=== PATIENT | female | born 1995 | race Two or more races ===

== ENCOUNTER 2016-04-25 16:04 | Emergency (ER) | payer OTHER ==
--- NOTE | 2016-04-25 16:37 | ER Document Report ---
ED Medical Screen (RME) - General Chief Complaint: Headache Stated Complaint: BODY ACHES,HEADACHE,VOMITING Time seen by provider: 16:35 Mode of Arrival: Ambulatory Information source: Patient Notes: 20-year-old female presents to ED for headache and body aches, vomited times one just before coming to the emergency room. She is 23 weeks . Denies abdominal pain. States she has felt her baby kick in all day. Next OB appointment is on Sunday. I have greeted and performed a rapid initial assessment of this patient. A comprehensive ED assessment and evaluation of the patient, analysis of test results and completion of medical decision making process will be conducted by an additional ED providers. TRAVEL OUTSIDE OF THE [place] IN LAST 30 DAYS: No - Related Data Allergies/Adverse Reactions: mushroom Allergy (Verified 03/15/16 22:37) banana peppers Allergy (Uncoded 03/15/16 22:37) Physical Exam - Vital signs Vitals: Temp Pulse Resp BP Pulse Ox 98.5 F 98 16 133/73 H 97 04/25/16 16:17 04/25/16 16:17 04/25/16 16:17 04/25/16 16:17 04/25/16 16:17 Course - Vital Signs Vital signs: Temp Pulse Resp BP Pulse Ox 98.5 F 98 16 133/73 H 97 04/25/16 16:17 04/25/16 16:17 04/25/16 16:17 04/25/16 16:17 04/25/16 16:17
[2016-04-25 17:59] LABS: APPEARANCE,URINE CLEAR; BILIRUBIN,URINE NEGATIVE (NEGATIVE); GLUCOSE, URINE NEGATIVE (NEGATIVE); KETONES,URINE NEGATIVE (NEGATIVE); LEUKOCYTE ESTERASE,URINE SMALL (NEGATIVE); NITRITE,URINE NEGATIVE (NEGATIVE); PROTEIN,URINE NEGATIVE (NEGATIVE); URINE SPECIFIC GRAVITY 1.012; UROBILINOGEN,URINE NEGATIVE mg/dL (<2.0)
--- NOTE | 2016-04-25 18:44 | ER Document Report ---
ED General - General Chief Complaint: Headache Stated Complaint: BODY ACHES,HEADACHE,VOMITING Mode of Arrival: Ambulatory TRAVEL OUTSIDE OF THE [place] IN LAST 30 DAYS: No - HPI Patient complains to provider of: headache nausea vomiting body aches Notes: Patient is a a 1 coming in for blood states symptoms. States ongoing for the last 3-4 days. Patient states no fevers no chills no diarrhea. Patient states positive movement. Patient denies any dysuria. Patient [facility] follow[facility] for her [facility] care. States she is taking her vitamins. Patient states she is taking promethazine for nausea control. - Related Data Allergies/Adverse Reactions: mushroom Allergy (Verified 04/25/16 16:37) banana peppers Allergy (Uncoded 04/25/16 16:37) Past Medical History - General Information source: Patient - Social History Smoking Status: Never Smoker Chew tobacco use (# tins/day): No Frequency of alcohol use: None Drug Abuse: None Family History: Reviewed & Not Pertinent Patient has suicidal ideation: No Patient has homicidal ideation: No Renal/ Medical History: Denies: Hx Peritoneal Dialysis Past Surgical History: Reports: Hx Gynecologic Surgery - 2015 Review of Systems - Review of Systems Constitutional: Other - Headache myalgias nausea vomiting EENT: No symptoms reported Cardiovascular: No symptoms reported Respiratory: No symptoms reported Gastrointestinal: No symptoms reported Genitourinary: No symptoms reported Female Genitourinary: No symptoms reported Musculoskeletal: No symptoms reported Skin: No symptoms reported Hematologic/Lymphatic: No symptoms reported Neurological/Psychological: No symptoms reported Physical Exam - Vital signs Vitals: Temp Pulse Resp BP Pulse Ox 98.5 F 98 16 133/73 H 97 04/25/16 16:17 04/25/16 16:17 04/25/16 16:17 04/25/16 16:17 04/25/16 16:17 Interpretation: Normal - General General appearance: Appears well, Alert - HEENT Head: Normocephalic, Atraumatic Eyes: Normal Pupils: PERRL - Respiratory Respiratory status: No respiratory distress Chest status: Nontender Breath sounds: Normal Chest palpation: Normal - Cardiovascular Rhythm: Regular Heart sounds: Normal auscultation Murmur: No - Abdominal Inspection: Gravid female Distension: No distension Bowel sounds: Normal Tenderness: Nontender Organomegaly: No organomegaly - Back Back: Normal, Nontender - Extremities General upper extremity: Normal inspection, Nontender, Normal color, Normal ROM , Normal temperature General lower extremity: Normal inspection, Nontender, Normal color, Normal ROM , Normal temperature, Normal weight bearing. No: Isidra's sign - Neurological Neuro grossly intact: Yes Cognition: Normal Orientation: AAOx4 [place] Com[place] Scale Eye Opening: Spontaneous [place] Coma Scale Verbal: Oriented [place] Com[place] Scale Motor: Obeys Commands [place] Coma Scale Total: 15 Speech: Normal Motor strength normal: LUE, RUE, LLE, RLE Sensory: Normal - Psychological Associated symptoms: Normal affect, Normal mood - Skin Skin Temperature: Warm Skin Moisture: Dry Skin Color: Normal Course - Re-evaluation Re-evalutation: 04/25/16 23:36 Patient coming in for evaluation nausea vomiting myalgias headache. Bedside ultrasound showed heart rate at approximately 146. Patient's urinalysis showed no signs of ketosis dehydration or infection. Patient will be given Reglan for home patient was discharged to follow-up with [facility] [employer] - Vital Signs Vital signs: Temp Pulse Resp BP Pulse Ox 98.5 F 74 16 118/61 99 04/25/16 16:17 04/25/16 19:00 04/25/16 16:17 04/25/16 19:00 04/25/16 19:00 - Laboratory Laboratory results interpreted by me: 04/25/16 04/25/16 16:40 16:40 Ur Leukocyte Esterase SMALL H Urine HCG, Qual POSITIVE H Discharge - Discharge Clinical Impression: Myalgia Qualifiers: Weeks of gestation: 32 weeks Qualified Code(s): Z3A.32 - 32 weeks gestation of Headache Qualifiers: Headache type: unspecified Headache chronicity pattern: acute headache Intractability: not intractable Qualified Code(s): R51 - Headache Condition: Good Disposition: HOME, SELF-CARE Instructions: Headache ([facility]), Reglan ([facility]), ([facility]) Additional Instructions: Take medication as prescribed. Please follow-up with your [employer]ING [employer] doctor. For nausea and vomiting during I recomment: Start with 10-12.5 mg of pyridoxine (vitamin B6) three times a day for 2 days. If not fully effective, Increase to 12.5 mg of pyridoxine four times a day for 2 days. If not fully effective, Increase to 25 mg of pyridoxine three times a day for 2 days. If not fully effective, Continue 25 mg pyridoxine 3 times a day, and add 12.5 mg of doxylamine before bedtime each day for 2 days. If not fully effective, Continue 25 mg pyridoxine 3 times a day, and take 12.5 mg of doxylamine twice a day. If not fully effective, Continue 25 mg pyridoxine 3 times a day, and take 12.5 mg of doxylamine three times a day. If not fully effective, Continue 25 mg pyridoxine 3 times a day, and 12.5 mg of doxylamine 3 times a day , while adding Emetrol, one to two tablespoons (15-30 cc) taken once or twice a day as needed. (Emetrol is an [id number] mixture of sugar syrups and phosphoric acid [phosphorylated carbohydrate solution]) that acts by soothing the actual wall of the gastrointestinal tract). If not fully effective, Consult with your doctor. Prescriptions: Metoclopramide HCl [Reglan] 5 mg PO Q6 #20 tablet
[2016-04-25 19:01] VITALS: BP 118/61
== END 2016-04-25 19:00 | disposition home or self-care (01) ==
LOC: ER 16:04
DX: M79.1 Myalgia (principal); R51 Headache; R52 Pain, unspecified; R11.2 Nausea with vomiting, unspecified; Z3A.32 32 weeks gestation of pregnancy
CPT/HCPCS: 81001; 81025; 99284

== ENCOUNTER 2016-05-30 22:48 | Outpatient (CLI) | payer OTHER ==
[2016-05-30 23:31] LABS: APPEARANCE,URINE SLIGHTLY-CLOUDY; BILIRUBIN,URINE NEGATIVE (NEGATIVE); GLUCOSE, URINE NEGATIVE (NEGATIVE); KETONES,URINE NEGATIVE (NEGATIVE); LEUKOCYTE ESTERASE,URINE SMALL (NEGATIVE); NITRITE,URINE NEGATIVE (NEGATIVE); PROTEIN,URINE NEGATIVE (NEGATIVE); URINE SPECIFIC GRAVITY 1.016; UROBILINOGEN,URINE NEGATIVE mg/dL (<2.0)
[2016-05-30 23:47] LABS: URINE BARBITURATES SCREEN NEGATIVE; URINE METHADONE SCREEN NEGATIVE; URINE OPIATES LOW NEGATIVE; URINE PHENCYCLIDINE SCREEN NEGATIVE
--- NOTE | 2016-05-31 04:45 | L&D Flow Sheet ---
LD Flowsheet Datetime Report Generated by CPN: 05/31/2016 04:45 Datetime: 05/31/2016 00:18 Additional Nursing Comments: Pt ambulated off unit with FOB. Pt given kick count care notes. Pt advised to keep appts as scheduled and f/u in L_D or physician's office as needed. Pt verbalized understanding and denies any questions. (Celeste Willett, RN) Datetime: 05/31/2016 00:17 Comments: Monitors removed for discharge. (Celeste Lattibeaudeir, RN) Datetime: 05/31/2016 00:00 Monitor Mode: External; Palpation (Xiomara Barth, RN) Frequency (min): none (Luis Felipeandra Barth, RN) Resting Tone (Palpate): Relaxed (Rucsandra Tab, RN) Contraction Comments: pt denies cramping or ctx. Abdomen palpates soft. (Xiomara aBrth, RN) Monitor Mode: External US (Xiomara Barth, RN) FHR Baseline Rate : 130 (Rucsandra Tab, RN) Variability: Moderate 6-25 bpm (Rucsandra Tab, RN) Accelerations: 15X15 (Rucsandra Tab, RN) Decelerations: None (Rucsandra Tab, RN) Datetime: 05/30/2016 23:56 NBP Sys/Shelli/Mean (mmHg): 123 (QS system process) : 69 (QS system process) : 92 (QS system process) Pulse: 68 (QS system process) LaborFlag: Antepartum (QS system process) Datetime: 05/30/2016 23:42 Communication Comments: Dr Neri on unit, strip reviewed, urine results reviewed. Orders received to D/C home after 1 hour total monitoring completed. (Xiomara Barth RN) Datetime: 05/30/2016 23:30 Monitor Mode: External; Palpation (Xiomara Barth, CHUNG) Frequency (min): none (Xiomara Barth RN) Resting Tone (Palpate): Relaxed (Xiomara Barth RN) Contraction Comments: abdomen palpates soft, pt denies feeling cramping or ctx. (Xiomara Barth, CHUNG) Monitor Mode: External US (Xiomara Barth, CHUNG) FHR Baseline Rate : 135 (Xiomara Barth RN) Variability: Moderate 6-25 bpm (Xiomara Barth, RN) Accelerations: 10X10 (Xiomara Barth, RN) Decelerations: None (Xiomara Barth, RN) Datetime: 05/30/2016 23:28 Maternal Comments: pt reports movement. (Xiomara Barth, RN) Datetime: 05/30/2016 23:26 Communication Comments: Dr Neri on unit, advised of Gs_Ps, EDC, pt complains and medical history. MD reviews FHTs and TOCO tracing and VS. (Xiomara Barth, RN) Datetime: 05/30/2016 23:16 NBP Sys/Shelli/Mean (mmHg): 134 (QS system process) : 81 (QS system process) : 101 (QS system process) Pulse: 71 (QS system process) Temperature (F): 98.7 (Luis Felipeandra Tab, RN) Temperature (C): 37.1 (QS system process) Temperature Route: Oral (Xiomara Barth, RN) LaborFlag: Antepartum (QS system process) Datetime: 05/30/2016 23:15 Pain Scale: 0 (Xiomara Barth, RN) Pain Presence: None/Denies (Xiomara Barth, RN) Pain Type: N/A (Xiomara Barth, RN) Vaginal Bleeding: None (Luis Felipeandra Barth, RN) Level of Consciousness: Fully Conscious (Xiomara Barth, RN) DTR's/Clonus: DTRs 2+; No Clonus (Dionycsandra Barth, RN) Headache: Denies (Rucsandra Tab, RN) Breath Sounds, Left: Clear and Equal (Luis Felipeandra Barth, RN) Breath Sounds, Right: Clear and Equal (Rucsandra Barth, RN) Nausea/Vomiting: Denies (Dionycsandra Barth, RN) RUQ Epigastric Pain: Denies (Rucsandra Tab, RN) LaborFlag: Antepartum (QS system process) Datetime: 05/30/2016 23:14 Maternal Comments: external monitors applied (Xiomara Barth RN) Patient Position/Activity: Left Tilt (Xiomara Barth RN) Instructional Method: Verbal; Patient Instructed; Family/Support Person Instructed; Verbalized Understanding (Xiomara Barth RN) Plan of Care: Plan of Care Discussed (Xiomara Barth RN) Unit Routine: [place] to Room; Call Merchant; Bed; Phone/Cell Phone Use; Unit Personnel; Handwashing; Monitoring; Safety/Fall Risk Prevention; Bathroom Privileges (Xiomara Barth RN) Datetime: 05/30/2016 23:13 Stage of : Antepartum (Xiomara Barth RN)
--- NOTE | 2016-05-31 04:45 | L&D Discharge Summary ---
OB Discharge Summary Datetime Report Generated by CPN: 05/31/2016 04:45 DISCHARGE DIAGNOSIS Diagnosis/Symptoms: False Labor Gestation: 28.3 Number of Babies in Womb: 1 Parity: 0 DIET/ACTIVITY/RESTRICTIONS Diet: Regular Activity: Normal Activity TEACHING/INSTRUCTIONS/REFERRALS Instructions Given To: Patient Instructions Understood: Patient Verbalized Understanding Referrals: None Educational Materials- Other: Kick count care notes given DISCHARGE INFORMATION Discharged AMA: No Discharge Date/Time: 05/31/2016 00:18 Discharged To: Home Discharge Provider Name: Dr. Neri Accompanied By: FOB Discharge Method: Ambulatory Condition: Stable FOLLOW UP INFORMATION Follow Up With: [facility] Follow Up On: As Scheduled Follow Up Phone Number: [facility] -
--- NOTE | 2016-05-31 04:45 | L&D Admission Assessment ---
LD ADM ASMT Datetime Report Generated by CPN: 05/31/2016 04:45 PATIENT ASSESSMENT Assessment Type: Triage (05/30/2016 23:15:Rucsandra Tab, RN) WEIGHT Weight (lb): 145 (05/31/2016 00:07:QS system process) Weight (kg): 65.9 (05/31/2016 00:07:QS system process) PAIN Pain Scale: 0 (05/30/2016 23:15:Xiomara Barth RN) Pain Presence: None/Denies (05/30/2016 23:15:Xiomara Barth RN) Pain Type: N/A (05/30/2016 23:15:Xiomara Barth RN) CONTRACTIONS Frequency (min): none (05/31/2016 00:00:Xiomara Barth RN) Frequency (min): none (05/30/2016 23:30:Xiomara Barth RN) Resting Tone [place]: Relaxed (05/31/2016 00:00:Xiomara Barth RN) Resting Tone [place]: Relaxed (05/30/2016 23:30:Xiomara Barth RN) Contraction Comments: pt denies cramping or ctx. Abdomen palpates soft. (05/31/2016 00:00:Xiomara Barth RN) Contraction Comments: abdomen palpates soft, pt denies feeling cramping or ctx. (05/30/2016 23:30:Xiomara Barth RN) NEURO Level of Consciousness: Fully Conscious (05/30/2016 23:15:Xiomara Barth RN) DTR's/Clonus: DTRs 2+; No Clonus (05/30/2016 23:15:Xiomara Barth RN) Headache: Denies (05/30/2016 23:15:Xiomara Barth RN) Dizziness: No (05/30/2016 23:15:Xiomara Barth RN) Blurred Vision: No (05/30/2016 23:15:Xiomara Barth RN) Extremity Numbness/Tingling : None (05/30/2016 23:15:Xiomara Barth RN) Extremity Movement: Full Range of Motion (05/30/2016 23:15:Xiomara Barth RN) CARDIOVASCULAR Heart Rhythm: Regular (05/30/2016 23:15:Xiomara Barth RN) Nailbeds: [place] (05/30/2016 23:15:Xiomara Barth RN) Capillary Refill: Less than 3 Seconds (05/30/2016 23:15:Xiomara Barth RN) Lower Extremities Edema: None (05/30/2016 23:15:Xiomara Barth RN) Lower Extremities Edema Degree: None (05/30/2016 23:15:Xiomara Barth RN) Upper Extremities Edema: None (05/30/2016 23:15:Xiomara Barth RN) Upper Extremities Edema Degree: None (05/30/2016 23:15:Xiomara Barth RN) Facial Edema: None (05/30/2016 23:15:Xiomara Barth RN) DVT RISK ASSESSMENT DVT Risk Age: Age less than 41 years (05/30/2016 23:15:Xiomara Barth RN) DVT Risk BMI: BMI<31 (05/30/2016 23:15:Xiomara Barth RN) DVT Risk Surgery: None Applicable (05/30/2016 23:15:Xiomara Barth RN) DVT Risk Other: Women Only- or (<1 month) (05/30/2016 23:15:Xiomara Barth RN) DVT Risk Total: 1 (05/30/2016 23:15:QS system process) DVT Risk Text: Low Risk (<10%) No specific measures, early ambulation (05/30/2016 23:15:QS system process) RESPIRATORY Respiratory Effort: Unlabored; Regular Rhythm; Equal Expansion (05/30/2016 23:15:Xiomara Barth RN) Breath Sounds, Left: Clear and Equal (05/30/2016 23:15:Xiomara Barth RN) Breath Sounds, Right: Clear and Equal (05/30/2016 23:15:Xiomara Barth RN) Cough Productivity: None (05/30/2016 23:15:Xiomara Barth RN) GASTROINTESTINAL Nausea/Vomiting: Denies (05/30/2016 23:15:Xiomara Barth RN) Bowel Sounds: Normoactive (05/30/2016 23:15:Xiomara Barth RN) RUQ Epigastric Pain: Denies (05/30/2016 23:15:Xiomara Barth RN) Bowel Patterns: Soft, Formed Stool (05/30/2016 23:15:Xiomara Barth RN) Hemorrhoids: None (05/30/2016 23:15:Xiomara Barth RN) Diet Type: Regular diet (05/30/2016 23:15:Xiomara Barth RN) Last Meal: 05/30/2016 19:30 (05/30/2016 23:15:Xiomara Barth RN) GENITOURINARY Bladder: Nondistended (Annotations: voiding) (05/30/2016 23:15:Xiomara Barth RN) Frequency of Urination: No (05/30/2016 23:15:Xiomara Barth RN) Urination Burning: No (05/30/2016 23:15:Xiomara Barth RN) CVA Tenderness: No (05/30/2016 23:15:Xiomara Barth RN) Vaginal Bleeding: None (05/30/2016 23:15:Xiomara Barth RN) Vaginal Discharge Amount: Small (05/30/2016 23:15:Xiomara Barth RN) Vaginal Discharge Color: White (05/30/2016 23:15:Xiomara Barth RN) INTEGUMENTARY Skin Color: Pale (05/30/2016 23:15:Xiomara Barth RN) Skin Temperature: Warm (05/30/2016 23:15:Xiomara Barth RN) Skin Moisture: Dry (05/30/2016 23:15:Xiomara Barth RN) Surgical Scars: forehead- fell as child (05/30/2016 23:15:Xiomara Barth RN) Body Piercings/Tattoos: 3 tattoos. (05/30/2016 23:15:Xiomara Barth RN) MARSHALL SKIN ASSESSMENT Marshall Scale Sensory Perception: No Impairment- Responds to verbal commands. Has no sensory deficit which would limit ability to feel or voice pain or discomfort (05/30/2016 23:15:Xiomara Barth RN) Marshall Scale Moisture: Rarely Moist- Skin is usually dry. Linen only requires changing at routine intervals (05/30/2016 23:15:Xiomara Barth RN) Marshall Scale Activity: Walks Frequently- Walks outside the room at least twice a day and inside room at least every 2 hours during the day. (05/30/2016 23:15:Xiomara Barth RN) Marshall Scale Mobility: No Limitations- Makes major and frequent changes in position without assistance (05/30/2016 23:15:Xiomara Barth RN) Marshall Scale Nutrition: Excellent- Eats most of every meal. Never refuses a meal. Usually eats a total of 4 or more servings of meat and dairy products. Occasionally eats between meals. Does not require supplementation (05/30/2016 23:15:Xiomara Barth RN) Marshall Scale Friction and Shear: No Apparent Problem- Moves in bed and in chair independently and has sufficient muscle strength to lift up completely during move. Maintains good position in bed or chair at all times (05/30/2016 23:15:Xiomara Barth RN) Marshall Scale Total: 23 (05/30/2016 23:15:QS system process) Marshall Scale Risk: No Risk of Pressure Ulcer Noted at this Time (05/30/2016 23:15:QS system process) SUPPORT Family Support: Significant Other supportive, at bedside frequently (05/30/2016 23:15:Xiomara Barth RN) Emotional State: Calm/Relaxed (05/30/2016 23:15:Xiomara Barth RN) SAFETY Call Merchant Within Reach: Yes (05/30/2016 23:15:Xiomara Barth RN) Side Rails Up: Yes (05/30/2016 23:15:Xiomara Barth RN) Bed Wheels Locked: Yes (05/30/2016 23:15:Xiomara Barth RN) Arm Bands Present: Yes (05/30/2016 23:15:Xiomara Barth RN) Isolation: [place] (05/30/2016 23:15:Xiomara Barth RN) FALL SCREEN Fall Risk History of Falling: (0) No (05/30/2016 23:15:Xiomara Barth RN) Fall Risk Secondary Diagnosis: (0) No (05/30/2016 23:15:Xiomara Barth RN) Fall Risk Ambulatory Aid: (0) None/Bedrest/Wheelchair/Nurse Assist (05/30/2016 23:15:Xiomara Barth RN) Fall Risk IV Therapy: (0) No (05/30/2016 23:15:Xiomara Barth RN) Fall Risk Gait: (0) Normal/Bedrest/Immobile (05/30/2016 23:15:Xiomara Barth RN) Fall Risk Mental Status: (0) Oriented to Own Ability (05/30/2016 23:15:Xiomara Barth RN) Fall Risk Score: 0 (05/30/2016 23:15:QS system process) Fall Risk Score Definition: No Risk: No action required (05/30/2016 23:15:QS system process) RECENT TRAVEL/INFECTIOUS DISEASE Recent Exp Communicable Disease: No (05/30/2016 23:15:Xiomara Barth RN) Cough or Fever: No (05/30/2016 23:15:Xiomara Barth RN) Foreign Travel Past 10 Days: No (05/30/2016 23:15:Xiomara Barth RN) Open Wounds or Sores: No (05/30/2016 23:15:Xiomara Barth RN) Prior Antibiotic Resistance Tx: No (05/30/2016 23:15:Xiomara Barth RN) Cultures Obtained: Not Applicable (05/30/2016 23:15:Xiomara Barth RN) Isolation Initiated: No (05/30/2016 23:15:Xiomara Barth RN) Pt/Family Education: Handwashing Hygiene (05/30/2016 23:15:Xiomara Barth RN) BABY A FHR Baseline Rate (bpm) Baby A: 130 (05/31/2016 00:00:Xiomara Barth RN) FHR Baseline Rate (bpm) Baby A: 135 (05/30/2016 23:30:Xiomara Barth RN) Variability Baby A: Moderate 6-25 bpm (05/31/2016 00:00:Xiomara Barth RN) Variability Baby A: Moderate 6-25 bpm (05/30/2016 23:30:Xiomara Barth RN) Accelerations Baby A: 15X15 (05/31/2016 00:00:Xiomara Barth RN) Accelerations Baby A: 10X10 (05/30/2016 23:30:Xiomara Barth RN) Decelerations Baby A: None (05/31/2016 00:00:Xiomara Barth RN) Decelerations Baby A: None (05/30/2016 23:30:Xiomara Barth RN)
--- NOTE | 2016-05-31 04:45 | Antepartum Discharge Summary ---
Antepartum DC Datetime Report Generated by CPN: 05/31/2016 04:45 DIET/ACTIVITY/RESTRICTIONS Diet: Regular (05/31/2016 00:18:Celeste Lattibeaudeir, RN) Activity: Normal Activity (05/31/2016 00:18:Celeste Lattibeaudeir, RN) TEACHING/INSTRUCTIONS/REFERRALS Instructions Given To: Patient (05/31/2016 00:18:Celeste Lattibeaudeir, RN) Instructions Understood: Patient Verbalized Understanding (05/31/2016 00:18:Celeste Willett RN) Referrals: None (05/31/2016 00:18:Celeste Willett RN) Educational Materials- Other: Kick count care notes given (05/31/2016 00:18:Celeste Willett RN) DISCHARGE INFORMATION Discharged AMA: No (05/31/2016 00:18:Celeste Willett RN) Discharge Date/Time: 05/31/2016 00:18 (05/31/2016 00:18:Celeste Willett RN) Discharged To: Home (05/31/2016 00:18:Celeste Willett RN) Discharge Provider Name: Dr. Neri (05/31/2016 00:18:Celeste Willett RN) Accompanied By: EUGENIE (05/31/2016 00:18:Celeste Willett RN) Discharge Method: Ambulatory (05/31/2016 00:18:Celeste Willett RN) Condition: Stable (05/31/2016 00:18:Celeste Willett RN) FOLLOW UP INFORMATION Follow Up With: [facility] (05/31/2016 00:18:Celeste Willett RN) Follow Up On: As Scheduled (05/31/2016 00:18:Celeste Willett RN) Follow Up Phone Number: [facility] - (05/31/2016 00:18:Celeste Willett RN)
--- NOTE | 2016-05-31 04:45 | L&D Current Admission ---
Current Admit Datetime Report Generated by CPN: 05/31/2016 04:45 ADMISSION INFORMATION Chief Complaint: at 28.3 with complaints of mucous discharge, with pink and brown tinged discharge noted upon wiping earlier in the day. Pt denies CTX or LOF. Pt denies bleeding. +FM. (05/30/2016 23:15:Xiomara Barth RN)
--- NOTE | 2016-05-31 04:45 | L&D General Admission ---
General Admit Datetime Report Generated by CPN: 05/31/2016 04:45 INFORMATION Patient Age: 20 (05/29/2016 16:03:QS system process) EDC: 08/19/2016 00:00 (05/30/2016 22:50:Celeste Willett RN) : 2 (05/30/2016 22:50:Celeste Willett RN) Para: 0 (05/30/2016 22:50:Celeste Willett RN) Term: 0 (05/30/2016 22:50:Celeste Willett RN) : 0 (05/30/2016 22:50:Celeste Willett RN) Spontaneous Abortions: 0 (05/30/2016 22:50:Celeste Willett RN) Induced Abortions: 0 (05/30/2016 22:50:Celeste Willett RN) Livin (05/30/2016 22:50:Celeste Willett RN) Cesareans: 0 (05/30/2016 22:50:Celeste Willett RN) VBACs: 0 (05/30/2016 22:50:Celeste Willett RN) Ectopic: 0 (05/30/2016 22:50:Celeste Willett RN) Multiple Births: 0 (05/30/2016 22:50:Celeste Willett RN) Baby, Number in Womb: 1 (05/31/2016 00:18:Celeste Willett RN) Baby, Number in Womb: 1 (05/30/2016 22:50:Celeste Willett RN) CARE Primary Practicing Md Anesthesiologist: [facility] (05/30/2016 22:50:Celeste Willett RN) Month of 1st Visit: 16 weeks (05/30/2016 22:50:Xiomara Barth RN) Adequate Care: No (05/30/2016 22:50:Xiomara Barth RN) Height (in): 63 (05/31/2016 00:07:QS system process) ALLERGIES Medication Allergy: No (05/30/2016 22:50:Xiomara Barth RN) Medication Allergies: mushroom (04/25/2016) (05/29/2016 16:03:QS system process) Latex Allergy: Latex Allergies (05/30/2016 22:50:Xiomara Barth RN) COMMUNICATION Primary Language: Polish (05/30/2016 22:50:Celeste Willett RN) Medical Tx Preferred Language: Polish (05/30/2016 22:50:Celeste Willett RN) Communication Barrier(s): None (05/30/2016 22:50:Celeste Willett RN) DEMOGRAPHICS Address: [address] [place] [id number] (05/29/2016 16:03:QS system process) Zipcode: [address] (05/29/2016 16:03:QS system process) Home (05/29/2016 16:03:QS system process) N: [id number] (05/29/2016 16:03:QS system process) Next of Kin Name: MINH LOZANO (05/29/2016 16:03:QS system process) Next of Kin (05/29/2016 16:03:QS system process) Next of Kin Relationship: SPO (05/29/2016 16:03:QS system process) Date of : 1995 (05/29/2016 16:03:QS system process) Marital Status: (05/29/2016 16:03:QS system process) Sex: Female (05/29/2016 16:03:QS system process) Race: Other (05/29/2016 16:03:QS system process) Ethnicity: Non- or (05/29/2016 16:03:QS system process) Quaker: Yazidi (05/29/2016 16:03:QS system process) LABS Blood Type: O Positive (05/30/2016 22:50:Celeste Willett RN) Antibody Screen: Negative (05/30/2016 22:50:Celeste Willett RN) Rho(G) this : Not Applicable (05/30/2016 22:50:Celeste Willett RN) RPR/VDRL: Nonreactive (05/30/2016 22:50:Celeste Willett RN) HIV Results: Negative (05/30/2016 22:50:Celeste Willett RN) Hepatitis B: Negative (05/30/2016 22:50:Celeste Willett RN) Rubella: Immune (05/30/2016 22:50:Celeste Willett RN)
== END 2016-05-31 00:18 | disposition home or self-care (01) ==
LOC: LC 22:48
PROVIDERS: ATTEND Obstetrics & Gynecology
PROC: 4A1HXCZ Monitoring of Products of Conception, Cardiac Rate, External Approach (ICD-10-PCS; principal; 2016-05-30)
DX: O47.03 False labor before 37 completed weeks of gestation, third trimester (principal); Z3A.28 28 weeks gestation of pregnancy
CPT/HCPCS: 80307; 81001

== ENCOUNTER → 2016-06-21 | Outpatient (CLI) | payer OTHER ==
[2016-06-21 06:01] LABS: APPEARANCE,URINE CLEAR; BILIRUBIN,URINE NEGATIVE (NEGATIVE); GLUCOSE, URINE NEGATIVE (NEGATIVE); KETONES,URINE NEGATIVE (NEGATIVE); LEUKOCYTE ESTERASE,URINE TRACE (NEGATIVE); NITRITE,URINE NEGATIVE (NEGATIVE); PROTEIN,URINE NEGATIVE (NEGATIVE); URINE SPECIFIC GRAVITY 1.012; UROBILINOGEN,URINE NEGATIVE mg/dL (<2.0)
[2016-06-21 06:10] LABS: URINE BARBITURATES SCREEN NEGATIVE; URINE METHADONE SCREEN NEGATIVE; URINE OPIATES LOW NEGATIVE; URINE PHENCYCLIDINE SCREEN NEGATIVE
== END | disposition home or self-care (01) ==
LOC: LC 05:04
PROVIDERS: ATTEND Specialist
PROC: 4A1HXCZ Monitoring of Products of Conception, Cardiac Rate, External Approach (ICD-10-PCS; principal; 2016-06-21)
DX: O47.03 False labor before 37 completed weeks of gestation, third trimester (principal); Z3A.31 31 weeks gestation of pregnancy
CPT/HCPCS: 80307; 81001

== ENCOUNTER 2016-07-16 01:36 | Emergency (ER) | payer OTHER ==
[2016-07-16] MEDS ORDERED: NORMAL SALINE 1000 ML 1,000 ML IV ONE (02:40)
[2016-07-16] MEDS ORDERED: ONDANSETRON HCL INJ/PF 4 MG/2 ML SDV IV ONE (02:41)
--- NOTE | 2016-07-16 02:41 | ER Document Report ---
ED General - General Chief Complaint: Vomiting Stated Complaint: VOMITING, POSSIBLE ALLERGIC REACTION Notes: Patient is a 20-year-old female presents with complaint of sudden onset of vomiting, diarrhea, and abdominal cramping. She says all her symptoms started at once and that she had hives. She says symptoms have since resolved. She's had no further vomiting or diarrhea. She'll occasionally have some cramping. She is 35 weeks . No vaginal bleeding or discharge. No fevers. No infections. Hives have completely resolved. No other complaints at this time. TRAVEL OUTSIDE OF THE [place] IN LAST 30 DAYS: No - Related Data Allergies/Adverse Reactions: mushroom Allergy (Verified 06/11/16 23:31) banana peppers Allergy (Uncoded 04/25/16 16:37) Past Medical History - Social History Smoking Status: Never Smoker Frequency of alcohol use: None Drug Abuse: None Family History: Reviewed & Not Pertinent Patient has suicidal ideation: No Patient has homicidal ideation: No Renal/ Medical History: Denies: Hx Peritoneal Dialysis Past Surgical History: Reports: Hx Gynecologic Surgery - 2015 Review of Systems - Review of Systems Notes: My Normal Review Basic REVIEW OF SYSTEMS: CONSTITUTIONAL : Denies fever, chills, or sweats. Denies recent illness. EENT: Denies eye, ear, throat, or mouth pain or symptoms. Denies nasal or sinus congestion.. RESPIRATORY: Denies cough, cold, or chest congestion. Denies shortness of breath, difficulty breathing, or wheezing. GASTROINTESTINAL: Abdominal cramping. Vomiting and diarrhea. GENITOURINARY: Denies difficulty urinating, painful urination, burning, frequency, or blood in urine. FEMALE GENITOURINARY: Denies vaginal bleeding, abnormal or irregular periods. LMP: Currently . MUSCULOSKELETAL: Denies neck or back pain or joint pain or swelling. SKIN: Denies rash or skin lesions. NEUROLOGICAL: Denies altered mental status or loss of consciousness. Denies headache. Denies weakness or paralysis or loss of use of either side. Denies problems with gait or speech. Denies sensory or motor loss. ALL OTHER SYSTEMS REVIEWED AND NEGATIVE. Physical Exam - Vital signs Vitals: Temp Pulse Resp BP Pulse Ox 97.4 F 84 16 130/91 H 98 07/16/16 01:40 07/16/16 01:40 07/16/16 01:40 07/16/16 01:40 07/16/16 01:40 - Notes Notes: General Appearance: Well nourished, alert, cooperative, no acute distress, no obvious discomfort. Well-appearing. Vitals: reviewed, See vital signs table. Head: no swelling or tenderness to the head Eyes: PERRL, EOMI, Conjuctiva clear Mouth: No decreasd moisture Lungs: No wheezing, No rales, No rhonci, No accessory muscle use, good air exchange bilaterally. Heart: Normal rate, Regular rythm, No murmur, no rub Abdomen: Normal BS, soft, No rigidity, No abdominal tenderness, abdomen abdomen No guarding, no rebound, no abdominal masses, no organomegaly Extremities: strength 5/5 in all extremities, good pulses in all extremities, no swelling or tenderness in the extremities, no edema. Skin: warm, dry, appropriate color, no rash Neuro: speech clear, oriented x 3, normal affect, responds appropriately to questions. Course - Vital Signs Vital signs: Temp Pulse Resp BP Pulse Ox 98.7 F 68 16 110/52 L 100 07/16/16 04:49 07/16/16 04:49 07/16/16 04:49 07/16/16 04:49 07/16/16 04:49 - Laboratory Result Diagrams: 07/16/16 03:07 07/16/16 03:07 Laboratory results interpreted by me: 07/16/16 07/16/16 07/16/16 03:07 03:07 03:07 WBC 12.8 H RBC 3.57 L Hgb 10.0 L Hct 30.0 L RDW 14.6 H Absolute Neutrophils 9.4 H Alkaline Phosphatase 205 H Urine Protein 30 H Urine Blood LARGE H Ur Leukocyte Esterase MODERATE H - Transfer of Care Notes: 07/16/16 05:47 Exact cause of the patient's sudden onset of vomiting and diarrhea is unclear. She's not having vomiting and diarrhea since that one episode. Extremities that she's had recurrent suprapubic cramping since then. She is 35 weeks . We will send her up to labor and delivery after discharge so that they can do monitoring of her to make sure she is not going into labor. Urinalysis does show evidence of infection. I informed patient that this could be contaminant; however, being that she is we should go ahead and treat upfront and then send her urine for culture. Encourage her to return to ER immediately if she has fevers, vaginal bleeding, worsening pain, or feels unwell. Patient agrees with plan will be discharged home. Dictation of this chart was performed using voice recognition software; therefore, there may be some unintended grammatical errors. Discharge - Discharge Clinical Impression: , Abdominal pain, Diarrhea, Pyuria Condition: Good Disposition: HOME, SELF-CARE Additional Instructions: Please return to the ER immediately if you have worsening pain, fevers, recurrent vomiting, vaginal bleeding, or if you feel unwell. We will send you directly to Labor and delivery from here so they can check to make sure the cramping you are having does not have any association with labor. Prescriptions: Cephalexin Monohydrate [Keflex 500 mg Capsule] 500 mg PO QID #20 capsule Referrals: BEN MCDONALD MD [Primary Care Provider] - Follow up in 3-5 days
[2016-07-16 03:14] LABS: ABSOLUTE BASOPHILS # (AUTO) 0.1 10^3/uL (0.0-0.2); ABSOLUTE EOSINOPHILS # (AUTO) 0.2 10^3/uL (0.0-0.6); ABSOLUTE LYMPHOCYTES (AUTO) 1.9 10^3/uL (0.5-4.7); ABSOLUTE MONOCYTES (AUTO) 1.2 10^3/uL (0.1-1.4); ABSOLUTE NEUT (AUTO) 9.4 10^3/uL (1.7-8.2); BASOPHILS % (AUTO) 0.5 % (0-2); EOSINOPHILS % (AUTO) 1.4 % (0-6); LYMPHOCYTES % (AUTO) 15.1 % (13-45); MEAN CORPUSCULAR HEMOGLOBIN 28.1 pg (27.0-33.4); MEAN CORPUSCULAR HGB CONC 33.5 g/dL (32.0-36.0); MEAN CORPUSCULAR VOLUME 84 fl (80-97); MONOCYTES % (AUTO) 9.4 % (3-13); RED BLOOD COUNT 3.57 10^6/uL (3.72-5.28); RED CELL DISTRIBUTION WIDTH 14.6 % (11.5-14.0); SEGMENTED NEUTROPHILS % (AUTO) 73.6 % (42-78); WHITE BLOOD COUNT 12.8 10^3/uL (4.0-10.5)
[2016-07-16 03:22] LABS: APPEARANCE,URINE SLIGHTLY-CLOUDY; BILIRUBIN,URINE NEGATIVE (NEGATIVE); GLUCOSE, URINE NEGATIVE (NEGATIVE); KETONES,URINE NEGATIVE (NEGATIVE); LEUKOCYTE ESTERASE,URINE MODERATE (NEGATIVE); NITRITE,URINE NEGATIVE (NEGATIVE); PROTEIN,URINE 30 mg/dL (NEGATIVE); URINE SPECIFIC GRAVITY 1.016; UROBILINOGEN,URINE NEGATIVE mg/dL (<2.0)
[2016-07-16 03:25] LABS: ALANINE AMINOTRANSFERASE 23 U/L (9-52); ALBUMIN 3.7 g/dL (3.5-5.0); ALKALINE PHOSPHATASE 205 U/L (38-126); ANION GAP 8 (5-19); ASPARTATE AMINO TRANSFERASE 21 U/L (14-36); BILIRUBIN,DIRECT 0.2 mg/dL (0.0-0.4); BILIRUBIN,TOTAL 0.5 mg/dL (0.2-1.3); BLOOD UREA NITROGEN 11 mg/dL (7-20); CALCIUM 9.3 mg/dL (8.4-10.2); CARBON DIOXIDE 28 mmol/L (22-30); CHLORIDE 105 mmol/L (98-107); CREATININE RESULT 0.62 mg/dL (0.52-1.25); GLUCOSE 90 mg/dL (75-110); SODIUM 140.7 mmol/L (137-145); TOTAL PROTEIN 7.2 g/dL (6.3-8.2)
[2016-07-16] MEDS ORDERED: CEPHALEXIN 500 MG CAPSULE PO ONE (04:11)
[2016-07-16] MEDS ORDERED: ONDANSETRON ODT 4 MG TAB (6 TAB/DSPK) PO PRN (04:14)
[2016-07-16 04:50] VITALS: BP 110/52
== END 2016-07-16 04:49 | disposition home or self-care (01) ==
LOC: ER 01:36
DX: O23.43 Unspecified infection of urinary tract in pregnancy, third trimester (principal); O21.2 Late vomiting of pregnancy; O26.893 Other specified pregnancy related conditions, third trimester; R19.7 Diarrhea, unspecified; R10.30 Lower abdominal pain, unspecified; Z3A.35 35 weeks gestation of pregnancy; Z91.018 Allergy to other foods
CPT/HCPCS: 99284; 96361; 96374; 36415; 85025; 80053; 81001; J2405; J7030

== ENCOUNTER 2016-08-09 14:03 | Inpatient (IN) | payer OTHER ==
[2016-08-09 14:39] LABS: APPEARANCE,URINE SLIGHTLY-CLOUDY; BILIRUBIN,URINE NEGATIVE (NEGATIVE); GLUCOSE, URINE NEGATIVE (NEGATIVE); KETONES,URINE NEGATIVE (NEGATIVE); LEUKOCYTE ESTERASE,URINE SMALL (NEGATIVE); NITRITE,URINE NEGATIVE (NEGATIVE); PROTEIN,URINE NEGATIVE (NEGATIVE); URINE SPECIFIC GRAVITY 1.017; UROBILINOGEN,URINE NEGATIVE mg/dL (<2.0)
[2016-08-09 14:49] LABS: AMNISURE (ROM) NEGATIVE (NEGATIVE)
[2016-08-09 15:08] LABS: URINE BARBITURATES SCREEN NEGATIVE; URINE METHADONE SCREEN NEGATIVE; URINE OPIATES LOW NEGATIVE; URINE PHENCYCLIDINE SCREEN NEGATIVE
[2016-08-09] MEDS ORDERED: RINGERS SOLUTION,LACTATED 1,000 ML IV ONE (15:59)
[2016-08-09] MEDS ORDERED: MISOPROSTOL 0.1 MG TABLET ONE ×2 (16:29→21:10)
[2016-08-09 16:30] LABS: ABSOLUTE EOSINOPHILS # (AUTO) 0.1 10^3/uL (0.0-0.6); ABSOLUTE LYMPHOCYTES (AUTO) 1.6 10^3/uL (0.5-4.7); ABSOLUTE MONOCYTES (AUTO) 0.9 10^3/uL (0.1-1.4); ABSOLUTE NEUT (AUTO) 8.9 10^3/uL (1.7-8.2); BASOPHILS % (AUTO) 0.4 % (0-2); EOSINOPHILS % (AUTO) 0.5 % (0-6); HEMATOCRIT 31.3 % (36.0-47.0); HEMOGLOBIN 10.2 g/dL (12.0-15.5); HGB HCT DIFFERENCE -0.7; LYMPHOCYTES % (AUTO) 14.2 % (13-45); MEAN CORPUSCULAR HEMOGLOBIN 27.4 pg (27.0-33.4); MEAN CORPUSCULAR HGB CONC 32.6 g/dL (32.0-36.0); MEAN CORPUSCULAR VOLUME 84 fl (80-97); MONOCYTES % (AUTO) 7.8 % (3-13); RED BLOOD COUNT 3.72 10^6/uL (3.72-5.28); RED CELL DISTRIBUTION WIDTH 15.1 % (11.5-14.0); SEGMENTED NEUTROPHILS % (AUTO) 77.1 % (42-78); WHITE BLOOD COUNT 11.5 10^3/uL (4.0-10.5)
--- NOTE | 2016-08-09 17:03 | L&D Progress Notes ---
PROGRESS NOTES Datetime Report Generated by CPN: 08/09/2016 17:03 PROGRESS NOTE Impression Other: oligo Procedures: Sterile Vag Exam Plan: Induction Informed Consent Obtained: Vaginal Delivery; Induction of Labor; Risks, Benefits and Alternatives Discussed Vital Signs : Reviewed; Within Normal Limits Comment: S: teary, anxious about process/diagnosis O:UC irreg., VSS A: cervix 1/70/-1 mid position soft, palpable bag of water P: Reviewed plan of care and diagnosis. Pt. agrees with plan. asked questions and verbalized understanding. Cytotec 25mcg pv inserted, reassess in 4hrs or earlier prn. VAGINAL EXAM Dilatation: 1 Effacement: 20 Station: -2 Contractions: irregular MEMBRANES Pooling: Negative Membranes: Intact FETUS A Monitoring: External US FHR Category: Category I Presentation: Vertex SIGNATURE SIGNATURE: [id number] Assignment: Luz Keating MD Signature: with User ID: [email or web address] : with User ID: [email or web address]
[2016-08-09 17:34] LABS: ALANINE AMINOTRANSFERASE 27 U/L (9-52); ALBUMIN 3.6 g/dL (3.5-5.0); ALKALINE PHOSPHATASE 248 U/L (38-126); ANION GAP 11 (5-19); ASPARTATE AMINO TRANSFERASE 23 U/L (14-36); BILIRUBIN,DIRECT 0.3 mg/dL (0.0-0.4); BILIRUBIN,TOTAL 0.5 mg/dL (0.2-1.3); BLOOD UREA NITROGEN 12 mg/dL (7-20); CALCIUM 9.4 mg/dL (8.4-10.2); CARBON DIOXIDE 23 mmol/L (22-30); CHLORIDE 104 mmol/L (98-107); CREATININE RESULT 0.63 mg/dL (0.52-1.25); GLUCOSE 94 mg/dL (75-110); LDH 770 U/L (313-618); POTASSIUM 3.7 mmol/L (3.6-5.0); TOTAL PROTEIN 7.4 g/dL (6.3-8.2)
[2016-08-09] MEDS: RINGERS SOLUTION,LACTATED 1,000 ML IV PRN ×2 (17:43→23:04)
[2016-08-09] MEDS ORDERED: ACETAMINOPHEN 325 MG TABLET ONE (20:50)
[2016-08-09] MEDS ORDERED: NALBUPHINE HCL INJ 10 MG/1 ML AMPULE ONE (23:51)
[2016-08-10] MEDS ORDERED: PHENYLEPHRINE HCL INJ/PF 10 MG/1 ML SDV ONE (01:14)
[2016-08-10] MEDS ORDERED: FENTANYL CITRATE INJ/PF 100 MCG/2 ML AMPUL ONE ×5 (01:14→06:23)
[2016-08-10] MEDS ORDERED: BUPIVACAINE HCL 0.25 % INJ/PF (2.5 MG/1 ML) 30 ML VIAL ONE (01:14)
[2016-08-10] MEDS ORDERED: FENTANYL/BUPIVACAINE/NS/PF 200 MCG/100 ML RTUINJ EPI ONE (01:14)
[2016-08-10] MEDS ORDERED: EPHEDRINE SULFATE INJ 50 MG/1 ML AMPULE ONE ×2 (01:14→03:31)
[2016-08-10] MEDS: RINGERS SOLUTION,LACTATED 1,000 ML IV PRN ×2 (02:13→02:19)
[2016-08-10] MEDS ORDERED: CITRIC ACID/SODIUM CITRATE ORAL SOLN 15 ML UDCUP ONE (03:08)
[2016-08-10] MEDS ORDERED: CEFAZOLIN 2 GM/D5W RTU 2 GM/50 ML RTUPB IV ONE (03:08)
--- NOTE | 2016-08-10 03:08 | L&D Progress Notes ---
PROGRESS NOTES Datetime Report Generated by ARIAN: 08/10/2016 03:08 Impression: Non-reassuring Heart Rate Procedures: Intrauterine Pressure Catheter Plan: Deliver- Section Informed Consent Obtained: Section Delivery; Risks, Benefits and Alternatives Discussed Comment: Discussed r/b/a of and pt wishes to proceed. FHR Comments: repetitve lates refractory to oxygen, ivf and positioning Signature: with User ID: [email or web address]
[2016-08-10] MEDS ORDERED: LIDOCAINE 2%/EPINEPHRINE INJ 20 ML VIAL ONE (03:29)
[2016-08-10] MEDS ORDERED: OXYTOCIN 10 UNIT/ML VIAL ONE (03:30)
[2016-08-10] MEDS ORDERED: OXYTOCIN/NORMAL SALINE 20 UNIT/1,000 ML RTUINJ ONE (03:30)
[2016-08-10] MEDS ORDERED: KETAMINE HCL INJ 500 MG/10 ML VIAL ONE (03:31)
[2016-08-10] MEDS ORDERED: MIDAZOLAM 2 MG/2 ML INJ ONE (03:31)
[2016-08-10] MEDS ORDERED: SODIUM BICARBONATE 8.4% INJ 50 MEQ/50 ML DISP.SYRIN ONE (03:32)
[2016-08-10] MEDS ORDERED: ONDANSETRON HCL INJ/PF 4 MG/2 ML SDV IV PRN (04:07)
[2016-08-10] MEDS ORDERED: MORPHINE SULFATE 10 MG/ML INJ IV PRN (04:07)
[2016-08-10] MEDS ORDERED: DIPHENHYDRAMINE HCL 50 MG/ML VIAL IV PRN (04:07)
[2016-08-10] MEDS ORDERED: FENTANYL CITRATE INJ/PF 100 MCG/2 ML AMPUL IV PRN ×3 (04:07)
[2016-08-10] MEDS ORDERED: PROMETHAZINE HCL INJ 25 MG/1 ML VIAL IV PRN ×3 (04:07→05:44)
[2016-08-10] MEDS ORDERED: MEPERIDINE HCL/PF INJ 25 MG/1 ML DISP.SYRIN IV PRN (04:07)
[2016-08-10] MEDS ORDERED: MISOPROSTOL 0.2 MG TABLET ONE (04:31)
[2016-08-10] MEDS ORDERED: ACETAMINOPHEN 100 ML IV ONE (04:39)
[2016-08-10] MEDS ORDERED: MEPERIDINE HCL/PF INJ 25 MG/1 ML DISP.SYRIN ONE (04:46)
--- NOTE | 2016-08-10 04:56 | Operative Report ---
Operative Report DATE OF SURGERY: 08/10/16 PREOPERATIVE DIAGNOSIS: Term intrauterine with nonreassuring heart tones remote from vaginal delivery, oligohydramnios POSTOPERATIVE DIAGNOSIS: Term intrauterine with nonreassuring heart tones now status post primary low transverse cervical section OPERATION: Primary low transverse SURGEON: ROBIN MCLAUGHLIN ANESTHESIA: Epidural TISSUE REMOVED OR ALTERED: Placenta ESTIMATED BLOOD LOSS: 600 mL INTRAOPERATIVE FINDINGS: Reid male , vertex presentation right occiput posterior, Apgars 8 and 9. Weight 3045 g. Normal uterus, tubes, and ovaries. PROCEDURE: After discussing risks benefits and alternatives of the procedure and obtaining informed consent the patient was taken to the operating room where epidural anesthesia was bolused. She was positioned in the dorsal supine position with a leftward tilt. She was then prepped and draped in the usual standard fashion. Pfannenstiel skin incision was made and the abdomen was entered in layers in the usual standard fashion. The C safe knife was used to make a low- transverse hysterotomy incision. The surgeon's hand was entered into the hysterotomy incision and the vertex elevated. After delivery of the head, a loose nuchal cord was reduced. Shoulders and body were delivered easily thereafter. Nasopharynx and oropharynx were bulb suctioned. Cord was clamped and cut. The was handed to pediatrics who were present. The placenta was manually extracted. The uterus was cleared of all clots and debris. The hysterotomy incision was closed with 0 Monocryl in a running locked fashion. Excellent hemostasis was observed. The uterus tubes and ovaries were returned to the peritoneal cavity. The cavity was irrigated with saline and hemostasis was again assured. A layer of Interceed was placed in an inverted T fashion over the lower uterine segment and anterior aspect of the uterus. Peritoneum was closed with 2-0 Vicryl in a pursestring fashion. Rectus muscles were loosely reapproximated with interrupted stitches of 2-0 Vicryl. The subfascial space was inspected and noted to be hemostatic. The fascia was closed with #1 Vicryl. The subcutaneous tissues were irrigated and hemostasis assured. 3-O plain gut was used to reapproximate the subcutaneous space. The skin was closed in a subcuticular fashion with 4-0 Monocryl. An OpSite dressing was applied. The patient was taken to recovery in stable condition. All sponge needle lap and instrument counts were correct.
[2016-08-10] MEDS ORDERED: HYDROMORPHONE HCL INJ/PF 2 MG/ML AMPULE IV PRN (05:44)
[2016-08-10] MEDS ORDERED: OXYTOCIN/NORMAL SALINE 1,000 ML IV PRN (05:44)
[2016-08-10] MEDS ORDERED: DIPH/PERTUSS(ACELL)/TETANUS VAC/PF 0.5 ML SYR (>=10YO) IM PRN (05:44)
[2016-08-10] MEDS ORDERED: OXYCODONE-ACETAMINOPHEN 5-325 MG TABLET PO PRN (05:44)
[2016-08-10] MEDS ORDERED: SIMETHICONE 80 MG TAB.CHEW PO PRN (05:44)
[2016-08-10] MEDS ORDERED: ACETAMINOPHEN 325 MG TABLET PO PRN (05:44)
[2016-08-10] MEDS ORDERED: MORPHINE SULFATE 10 MG/ML INJ ONE (06:03)
--- NOTE | 2016-08-10 06:37 | Delivery Summary ---
Del Sum A-C Datetime Report Generated by CPN: 08/10/2016 06:37 DELIVERY PERSONNEL DELIVERY PERSONNEL: [id number] Delivery Doctor:: Luz Keating MD Anesthesiologist:: Vanessa Martin MD COPPER ROLLER HANDLER PRINTING:: Dalila Cash CRNA Labor and Delivery Nurse:: Celeste Willett RN Neonatal Nurse Practitioner:: GABBIE Brewster Nursery Nurse:: aMrleny Woodard RN MSN Tubing Machine Operator/LINKER UP: Guerda Schneider CNA MATERNAL INFORMATION Delivery Anesthesia: Epidural Medications After Delivery: Pitocin Drip 20 Units/1000ml NSS; Other-Please Comment Meds After Delivery Comment: Cytotec 1000mcg [place] Estimated Blood Loss (ml): 600 Maternal Complications: None LABOR SUMMARY EDC: 08/19/2016 00:00 No. Babies in Womb: 1 Attempted: No Labor Anesthesia: Epidural LABOR INFORMATION Reason for Induction: Oligohydramnios Onset of Labor: 08/10/2016 23:56 Cervical Ripening Agents: Cytotec @ Oxytocin: N/A Group B Beta Strep: Negative Steroids Given: None Reason Steroids Not Administered: Not Applicable MEMBRANES Membranes Rupture Method: Artificial Rupture of Membranes: 08/10/2016 02:59 Length of Rupture (hr): 0.83 Amniotic Fluid Color: Clear Amniotic Fluid Amount: Small Amniotic Fluid Odor: Normal STAGES OF LABOR Stage 3 hr: 0 Stage 3 min: 2 Total Time in Labor hr: -20 Total Time in Labor min: -5 VAGINAL DELIVERY Episiotomy: None Laceration Extension: N/A Laceration Type: None Laceration Repair: Not Applicable Sponge Count Correct: N/A Sharps Count Correct: N/A CSECTION DELIVERY Primary Indication: Nonreassuring Status CSection Urgency: Non-Scheduled CSection Incidence: Primary Labor: Labor Elective: Nonelective CSection Incision: Lower Uterine Transverse BABY A INFORMATION Infant Delivery Date/Time: 08/10/2016 03:49 Method of Delivery: Born in Route : No : N/A Forceps: N/A Vacuum Extraction: N/A Shoulder Dystocia : No PRESENTATION/POSITION BABY A Presentation: Cephalic Cephalic Presentation: Vertex Breech Presentation: N/A (Annotations: Data stored by [facility] on behalf of user) PLACENTA INFORMATION BABY A Placenta Delivery Time : 08/10/2016 03:51 Placenta Method of Delivery: Manual Removal Placenta Status: Delivered SCORES BABY A Heart Rate 1 min: >100 bpm Resp Effort 1 min: Good Cry Reflex Irritability 1 min: Cough or Sneeze or Pulls Away Muscle Tone 1 min: Active Motion Color 1 min: Blue/Pale Resuscitation Effort 1 min: Tactile Stimulation SCORE 1 MIN: 8 Heart Rate 5 min: >100 bpm Resp Effort 5 min: Good Cry Reflex Irritability 5 min: Cough or Sneeze or Pulls Away Muscle Tone 5 min: Active Motion Color 5 min: Body Pigeon, Extremities Blue Resuscitation Effort 5 min: Tactile Stimulation SCORE 5 MIN: 9 INFORMATION BABY A Gestational Age at Delivery: 38.5 Gestational Status: Early Term- 37- 38.6 Weeks Outcome : Liveborn Condition : Stable Infant Sex: Male IDENTIFICATION BABY A Infant Verification Date/Time: 08/10/2016 03:56 ID Band Number: [id number] Mother's Name Verified: Yes RN Verifying Infant: K Nicolás RN Additional Verifying Personnel: A Schneider LINKER UP WEIGHT/LENGTH BABY A Birthweight (gm): 3045 Weight (lb): 6 Weight (oz): 11 Infant Length (in): 19.75 Length (cm): 50.17 CORD INFORMATION BABY A No. Cord Vessels: 3 Nuchal Cord : Around Neck x1, Tight Cord Blood Taken: Yes-For Eval (Mom's Blood Type - or O+) Infant Suction: Mouth; Nose ASSESSMENT BABY A Complications: Multiple Late Decels; Multiple Variable Decels Physical Findings at Delivery: Molding of the Head Infant Respirations: Appears Normal Display Maker/ALS Called : No Care By: Timmy Woodard RN Transferred To: Nursery BABY B INFORMATION : N/A
--- NOTE | 2016-08-10 07:22 | Admission Physical ---
Datetime Report Generated by CPN: 08/10/2016 07:21 CURRENT ADMISSION Chief Complaint: Suspected Ruptured Membranes Indication for Induction: Oligohydramnios Admit Plan: Admit to Unit; Initiate Labor Induction Protocol ALLERGIES Medication Allergies: No Medication Allergies: NKDA Medication Allergies: mushroom (06/11/2016) Medication Allergies: mushroom (04/25/2016) Latex: Latex Allergies Food Allergies: Mushroom, banana peppers Environmental Allergies: Bees OBSTETRICAL HISTORY EDC: 08/19/2016 00:00 : 2 Para: 0 Term: 0 : 0 SAB: 0 IAB: 0 Ectopic: 0 Livin Cesareans: 0 VBACs: 0 Multiple Births: 0 Gestational Diabetes: No Rh Sensitization: No Incompetent Cervix: No JASBIR: No Infertility: No ART Treatment: No Uterine Anomaly: No IUGR: No Hx Previous C/S: No Macrosomia: No Hx Loss/Stillborn: No PIH: No Hx : No Placenta Previa/Abruption: Yes Depression/PP Depression: No PTL/PROM: No Post Hemorrhage: No Current Procedures: Ultrasound Obstetrical History Comments: G1: IAB G2: Current with subchorianic hemorrhage SEE RECORDS Alcohol: Yes Alcohol Comments: stopped when found out she was Marijuana : No Cocaine: No Other Illicit Drugs: No Cigarettes: Former Smoker. [id number] MEDICAL HISTORY Diabetes: No Blood Transfusion: No Pulmonary Disease (Asthma, TB): No Breast Disease: No Hypertension: No Metal Cleaner Surgery: No Heart Disease: No Hosp/Surgery: No Autoimmune Disorder: No Anesthetic Complications: No Kidney Disease: Yes Abnormal Pap Smear: No Neuro/Epilepsy: No Psychiatric Disorders: No Other Medical Diseases: No Hepatitis/Liver Disease: No Significant Family History: No Varicosities/Phlebitis: No Trauma/Violence : No Thyroid Dysfunction: No Medical History Comments: UTIs with INFECTIOUS HISTORY Gonorrhea: No Genital Herpes: No Chlamydia: No Tuberculosis: No Syphilis: No Hepatitis: No HIV/AIDS Exposure: No Rash or Viral Illness: No HPV: No PHYSICAL EXAM General: Normal HEENT: Normal Neurologic: Normal Thyroid: Deferred Heart: Normal Lungs: Normal Breast: Deferred Back: Normal Abdomen: Normal Genitourinary Exam: Normal Extremities: Normal DTRs: Normal Pelvic Type: Adequate Vital Signs: Reviewed; Within Normal Limits VAGINAL EXAM Dilatation: 1 Effacement: 20 Station: -2 Contraction Comments: irregular MEMBRANES Pooling: Negative Membranes: Intact FETUS A EGA: 38.4 Monitoring: External US FHR- Baseline: 125 Variability: Moderate 6-25bpm Accelerations: 15X15 Decelerations: None FHR Category: Category I Presentation: Vertex Admit Comment: 20yo @ 38w4d admitted after OLGA of 1.1 was found on u/s. Pt. reports scant LOF x 3 days unsure if it was discharge or ammniotic fluid. Had negative pooling at clinic + nitrazine neg amnisure but oligo. Uncomplicated except for echogenic foci in heart on anatomy u/s. Pt. is GBS neg, O pos. , Rubella Immune. Medical hx significant for hx of in 2014. Dr. Fiore is the DRY CLIPPER TENDER remote operations producer aware of pt and recommends IOL with PV cytotec at this time. PLANS FOR LABOR AND DELIVERY Labor and Delivery: None Pain Management: Epidural Feeding Preference: Both Benefit of Breast Feed Discussed: Yes Circumcision: Yes INFORMED CONSENT Informed Consent Obtained: Section Delivery; Risks, Benefits and Alternatives Discussed Informed Consent Obtained: Vaginal Delivery; Induction of Labor; Risks, Benefits and Alternatives Discussed Assignment: Luz Keating MD Signature: with User ID: [email or web address] : with User ID: [email or web address]
[2016-08-10] MEDS ORDERED: DEXAMETHASONE SOD PHOSPHATE INJ 4 MG/1 ML VIAL ONE (08:13)
[2016-08-10] MEDS ORDERED: LIDOCAINE 2% INJ-PF (20 MG/ML) 10 ML AMPUL ONE (08:13)
[2016-08-10] MEDS ORDERED: KETOROLAC TROMETHAMINE 60 MG/2 ML SDV ONE (08:13)
[2016-08-10] MEDS ORDERED: ONDANSETRON HCL INJ/PF 4 MG/2 ML SDV ONE (08:13)
[2016-08-10] MEDS ORDERED: METOCLOPRAMIDE HCL INJ/PF 10 MG/2 ML SDV ONE (08:13)
--- NOTE | 2016-08-10 09:42 | PDOC PROGRESS REPORT ---
Subjective-OB Subjective: Post Delivery Day: 20 year old. Denies any needs at this time delivered earlier this morning abdomen mildly tender- soft op site- dry and intact ff@u-1 bonding well with infant encouraged ambulation -bowel movement, -flatus pt to see reimbursement consultant this morning for support Physical Exam (OB) Vital Signs: Temp Pulse Resp BP Pulse Ox 98.7 F 67 16 134/77 H 95 08/10/16 08:15 08/10/16 08:15 08/10/16 08:15 08/10/16 08:15 08/10/16 08:15 Intake & Output 08/09/16 08/10/16 08/11/16 06:59 06:59 06:59 Weight 71.4 kg - Dressing Removed: No Incision: Dressing Closure Type: Steri-Strips - Lochia Lochia Amount: Scant < 10 ml Lochia Color: Rubra/Red - Abdomen Description: Tender, Soft Hernia Present: No Fundal Description: Firm, Midline Fundal Height: u/u - u/2 Objective-Diagnostic Laboratory: 08/09/16 16:16 08/09/16 16:16 08/09/16 08/09/16 08/09/16 14:12 16:16 16:16 WBC 11.5 H RBC 3.72 Hgb 10.2 L Hct 31.3 L MCV 84 MCH 27.4 MCHC 32.6 RDW 15.1 H Plt Count 290 Seg Neutrophils % 77.1 Lymphocytes % 14.2 Monocytes % 7.8 Eosinophils % 0.5 Basophils % 0.4 Absolute Neutrophils 8.9 H Absolute Lymphocytes 1.6 Absolute Monocytes 0.9 Absolute Eosinophils 0.1 Absolute Basophils 0.0 Sodium Potassium Chloride Carbon Dioxide Anion Gap BUN Creatinine Est GFR ( Amer) Est GFR (Non-Af Amer) Glucose Uric Acid Calcium Total Bilirubin AST ALT Alkaline Phosphatase Total Protein Albumin Urine Color YELLOW Urine Appearance SLIGHTLY-CLOUDY Urine pH 6.0 Ur Specific Ulysses 1.017 Urine Protein NEGATIVE Urine Glucose (UA) NEGATIVE Urine Ketones NEGATIVE Urine Blood NEGATIVE Urine Nitrite NEGATIVE Ur Leukocyte Esterase SMALL H Blood Type O POSITIVE Antibody Screen NEGATIVE 08/09/16 16:16 WBC RBC Hgb Hct MCV MCH MCHC RDW Plt Count Seg Neutrophils % Lymphocytes % Monocytes % Eosinophils % Basophils % Absolute Neutrophils Absolute Lymphocytes Absolute Monocytes Absolute Eosinophils Absolute Basophils Sodium 138.0 Potassium 3.7 Chloride 104 Carbon Dioxide 23 Anion Gap 11 BUN 12 Creatinine 0.63 Est GFR ( Amer) > 60 Est GFR (Non-Af Amer) > 60 Glucose 94 Uric Acid 4.0 Calcium 9.4 Total Bilirubin 0.5 AST 23 ALT 27 Alkaline Phosphatase 248 H Total Protein 7.4 Albumin 3.6 Urine Color Urine Appearance Urine pH Ur Specific Ulysses Urine Protein Urine Glucose (UA) Urine Ketones Urine Blood Urine Nitrite Ur Leukocyte Esterase Blood Type Antibody Screen
[2016-08-10] MEDS: PRENATAL VITAMIN W-O CA NO5/FE FUMARATE/FA CAPSULE PO SCH (09:47)
[2016-08-10] MEDS: DOCUSATE SODIUM 100 MG CAPSULE PO SCH ×2 (09:47→18:40)
[2016-08-10] MEDS: OXYCODONE-ACETAMINOPHEN 5-325 MG TABLET PO PRN ×3 (11:09→20:46)
[2016-08-11] MEDS: OXYCODONE-ACETAMINOPHEN 5-325 MG TABLET PO PRN ×6 (00:56→21:55)
[2016-08-11 07:37] LABS: HEMOGLOBIN 8.2 g/dL (12.0-15.5); HGB HCT DIFFERENCE -0.4; MEAN CORPUSCULAR HEMOGLOBIN 27.2 pg (27.0-33.4); MEAN CORPUSCULAR HGB CONC 32.9 g/dL (32.0-36.0); MEAN CORPUSCULAR VOLUME 83 fl (80-97); RED BLOOD COUNT 3.02 10^6/uL (3.72-5.28); RED CELL DISTRIBUTION WIDTH 15.6 % (11.5-14.0); WHITE BLOOD COUNT 14.7 10^3/uL (4.0-10.5)
--- NOTE | 2016-08-11 09:42 | PDOC PROGRESS REPORT ---
Subjective-OB Subjective: Post Delivery Day: 1 20 year old. Denies any needs at this time, states lochia is stable, pain well controlled, voiding without difficulty, tolerating diet, passing gas. Physical Exam (OB) Vital Signs: Temp Pulse Resp BP Pulse Ox 98.5 F 78 16 114/58 L 100 08/11/16 07:51 08/11/16 07:51 08/11/16 07:51 08/11/16 07:51 08/11/16 07:51 Intake & Output 08/10/16 08/11/16 08/12/16 06:59 06:59 06:59 Intake Total 1500 Output Total 4150 Balance -2650 Weight 71.4 kg - Dressing Removed: Yes - opsite Incision: Dressing, Draining Closure Type: Steri-Strips - Lochia Lochia Amount: Small 10-25 ml Lochia Color: Rubra/Red - Abdomen Description: Soft, Round Hernia Present: No Fundal Description: Firm, Midline Fundal Height: u/u - u/2 Objective-Diagnostic Laboratory: 08/11/16 07:15 08/09/16 16:16 08/11/16 07:15 WBC 14.7 H RBC 3.02 L Hgb 8.2 L Hct 25.0 L MCV 83 MCH 27.2 MCHC 32.9 RDW 15.6 H Plt Count 251 Assessment and Plan(PN) - Assessment and Plan (1) Acute blood loss anemia Is this a current diagnosis for this admission?: YesPlan: ferrous sulfate increase dietary iron (2) Delivery by emergency caesarean section Is this a current diagnosis for this admission?: YesPlan: routine post op care (3) Oligohydramnios Qualifiers: Trimester: third trimester Is this a current diagnosis for this admission?: YesPlan: as above - Time Spent with Patient Time with patient: Less than 15 minutes Critical Time spent with patient: Less than 15 minutes Medications reviewed and adjusted accordingly: Yes - Disposition Anticipated Discharge: Home Within: within 24 hours
[2016-08-11] MEDS: DOCUSATE SODIUM 100 MG CAPSULE PO SCH ×2 (09:53→17:42)
[2016-08-11] MEDS: PRENATAL VITAMIN W-O CA NO5/FE FUMARATE/FA CAPSULE PO SCH (09:53)
[2016-08-11] MEDS ORDERED: DIPHENHYDRAMINE HCL 50 MG CAPSULE PO PRN (21:08)
[2016-08-11] MEDS ORDERED: HYDROCORTISONE 1% CREAM 28.35 GM TP PRN (21:28)
[2016-08-12] MEDS: OXYCODONE-ACETAMINOPHEN 5-325 MG TABLET PO PRN ×2 (03:26→09:02)
[2016-08-12] MEDS: PRENATAL VITAMIN W-O CA NO5/FE FUMARATE/FA CAPSULE PO SCH (09:02)
[2016-08-12] MEDS: DOCUSATE SODIUM 100 MG CAPSULE PO SCH (09:02)
--- NOTE | 2016-08-12 09:28 | PDOC DISCHARGE SUMMARY ---
Final Diagnosis Discharge Date: 08/12/16 - Final Diagnosis (1) Acute blood loss anemia Is this a current diagnosis for this admission?: Yes (2) Delivery by emergency caesarean section Is this a current diagnosis for this admission?: Yes (3) Oligohydramnios Is this a current diagnosis for this admission?: Yes Discharge Data - Discharge Medication Home Medications: Loratadine [Claritin] 10 mg PO DAILY 08/09/16 Promethazine HCl [Phenergan] 1 tab PO ASDIR PRN 08/09/16 Docusate Sodium [Colace 100 mg Capsule] 100 mg PO BID #60 capsule 08/12/16 Ferrous Sulfate 325 mg PO BID #60 tablet. 08/12/16 Ibuprofen 800 mg PO Q6 #60 tablet 08/12/16 Oxycodone HCl/Acetaminophen [Percocet 5-325 mg Tablet] 2 tab PO Q4HP PRN #30 tablet 08/12/16 Gestational Age: 38.5 Reason(s) for Admission: Ceasarean Section-Primary, Other - oligo, previa, abruption Procedures: NST - Data Baby 1 Male at 1 minute: 8 at 5 minutes: 9 Weight: 3045 kg Home with Mother: Yes Complications: No - Diagnosis Test Laboratory: Temp Pulse Resp BP Pulse Ox 98.6 F 106 H 16 124/68 99 08/12/16 07:45 08/12/16 07:45 08/12/16 07:45 08/12/16 07:45 08/12/16 07:45 08/09/16 08/09/16 08/11/16 14:12 16:16 07:15 RBC 3.72 3.02 L Hgb 10.2 L 8.2 L Hct 31.3 L 25.0 L Urine Opiates Screen NEGATIVE - Discharge information/Instructions Discharge Activity: Activity As Tolerated, Balance Activity w/Rest, No Driving, No Lifting Over 10 Pounds, Pelvic Rest, No tub bath Discharge Diet: Regular Disposition: HOME, SELF-CARE Follow up with: [facility] in: 1, Weeks
[2016-08-12 11:29] VITALS: BP 128/77
== END 2016-08-12 12:09 | disposition home or self-care (01) | DRG 765 ==
LOC: LC 14:03 → LR 16:41 → 2N 08-10 07:20
PROVIDERS: ADMIT Specialist; ATTEND Specialist
PROC: 4A1HXCZ Monitoring of Products of Conception, Cardiac Rate, External Approach (ICD-10-PCS; 2016-08-09)
PROC: 3E0P7GC Introduction of Other Therapeutic Substance into Female Reproductive, Via Natural or Artificial Opening (ICD-10-PCS; 2016-08-09)
PROC: 10D00Z1 Extraction of Products of Conception, Low, Open Approach (ICD-10-PCS; principal; 2016-08-10)
PROC: 4A1H7CZ Monitoring of Products of Conception, Cardiac Rate, Via Natural or Artificial Opening (ICD-10-PCS; 2016-08-10)
PROC: 10H07YZ Insertion of Other Device into Products of Conception, Via Natural or Artificial Opening (ICD-10-PCS; 2016-08-10)
DX: O76 Abnormality in fetal heart rate and rhythm complicating labor and delivery (principal); O45.93 Premature separation of placenta, unspecified, third trimester; O41.03X0 Oligohydramnios, third trimester, not applicable or unspecified; D62 Acute posthemorrhagic anemia; O99.02 Anemia complicating childbirth; O69.1XX0 Labor and delivery complicated by cord around neck, with compression, not applicable or unspecified; Z37.0 Single live birth; Z3A.38 38 weeks gestation of pregnancy; Z87.891 Personal history of nicotine dependence
CPT/HCPCS: 1961; 36415; 76815; 80053; 80307; 81005; 83615; 84112; 84550; 85025; 85027; 86592; 86850; 86900; 86901; 88307; 94799; C1765; J0131; J0690; J1100; J1885; J2175; J2250; J2270; J2300; J2370; J2405; J2590; J2765; J3010; J3490

== ENCOUNTER 2017-09-02 03:37 | Emergency (ER) | payer OTHER ==
--- NOTE | 2017-09-02 04:16 | ER Document Report ---
ED General - General Chief Complaint: Abdominal Cramping Stated Complaint: ABDOMINAL CRAMPING Time Seen by Provider: 09/02/17 04:06 Notes: Patient is a pleasant 22-year-old female presents with 3 days of intermittent cramping type pain in the suprapubic region and radiates up her abdomen. The triage notes the right lower quadrant however the patient points at specifically the suprapubic region. She denies any fevers. No vomiting. No diarrhea. No abnormal vaginal bleeding or discharge. Her last menstrual period was July 15. She says sometimes she will skip a period. She has not checked a test. She is sexually active and says there is a chance she could be . No dysuria. TRAVEL OUTSIDE OF THE [place] IN LAST 30 DAYS: No - Related Data Allergies/Adverse Reactions: mushroom Allergy (Verified 08/09/16 14:27) banana peppers Allergy (Uncoded 08/09/16 14:27) Past Medical History - Social History Smoking Status: Unknown if Ever Smoked Frequency of alcohol use: None Drug Abuse: None Family History: Reviewed & Not Pertinent Renal/ Medical History: Denies: Hx Peritoneal Dialysis Past Surgical History: Reports: Hx Gynecologic Surgery - 2015 Review of Systems - Review of Systems Notes: My Normal Review Basic REVIEW OF SYSTEMS: CONSTITUTIONAL : Denies fever, chills, or sweats. Denies recent illness. GASTROINTESTINAL: Suprapubic abdominal pain. Denies nausea, vomiting, or diarrhea. GENITOURINARY: Denies difficulty urinating, painful urination, burning, frequency, or blood in urine. FEMALE GENITOURINARY: Denies vaginal bleeding, abnormal or irregular periods. LMP: July 15 MUSCULOSKELETAL: Denies neck or back pain or joint pain or swelling. SKIN: Denies rash or skin lesions. NEUROLOGICAL: Denies altered mental status or loss of consciousness. Denies headache. Denies weakness or paralysis or loss of use of either side. Denies problems with gait or speech. Denies sensory or motor loss. Physical Exam - Vital signs Vitals: Temp Pulse Resp BP Pulse Ox 98.8 F 79 18 138/84 H 100 09/02/17 03:45 09/02/17 03:45 09/02/17 03:45 09/02/17 03:45 09/02/17 03:45 - Notes Notes: General Appearance: Well nourished, alert, cooperative, no acute distress, no obvious discomfort. Well-appearing. Vitals: reviewed, See vital signs table. Head: no swelling or tenderness to the head Eyes: PERRL, EOMI, Conjuctiva clear Lungs: No wheezing, No rales, No rhonci, No accessory muscle use, good air exchange bilaterally. Heart: Normal rate, Regular rythm, No murmur, no rub Abdomen: Normal BS, soft, No rigidity, mild to moderate suprapubic abdominal tenderness to palpation. No right lower quadrant abdominal tenderness palpation., No guarding, no rebound, Pelvic exam: Exam performed with female park maintainer Luh do RN. Normal external genitalia. Patient does have moderate amount of yellowish type discharge in the vaginal vault. No blood in vaginal vault. Extremities: strength 5/5 in all extremities, good pulses in all extremities, no swelling or tenderness in the extremities, no edema. Skin: warm, dry, appropriate color, no rash Neuro: speech clear, oriented x 3, normal affect, responds appropriately to questions. Course - Re-evaluation Re-evalutation: 09/02/17 06:50 Patient does have a significant amount of yellowish type discharge vaginally. I did inform her that recommends going treating prophylaxis for gonorrhea and chlamydia. She agrees to this. Given a culture callback number so she can call back later and get x-ray results of her current me. Informed her she should start taking vitamins because of her . Patient says " I was really worried about that". Not sure if this means that she is considering . I still strongly encourage her to take the center follow-up with the liquefier. Also told her she has a cyst in the left side which she says she thinks is what is causing her pain as she now mentions that the pain is been gradually worsening for some time now. It is septated cyst and I told her it is important she has follow-up with her paint trimmer pipe bowls that this is reevaluated. Patient agrees and said she would do this. I have referred her to Dr. Womack. I strongly encouraged her return to ER immediately if she has fevers, worsening pain, vaginal bleeding, or she feels unwell. Patient agrees with plan will be discharged home. Dictation of this chart was performed using voice recognition software; therefore, there may be some unintended grammatical errors. - Vital Signs Vital signs: Temp Pulse Resp BP Pulse Ox 98.8 F 79 18 138/84 H 100 09/02/17 03:45 09/02/17 03:45 09/02/17 03:45 09/02/17 03:45 09/02/17 03:45 - Laboratory Laboratory results interpreted by me: 09/02/17 09/02/17 04:24 05:01 Beta HCG, Quant 37119.00 H Urine Protein 30 H Urine Ketones TRACE H Urine Urobilinogen 2.0 H Ur Leukocyte Esterase MODERATE H Urine HCG, Qual POSITIVE H Discharge - Discharge Clinical Impression: Pelvic pain Qualifiers: Weeks of gestation: less than 8 weeks Qualified Code(s): Z3A.01 - Less than 8 weeks gestation of Condition: Good Disposition: HOME, SELF-CARE Additional Instructions: Please call [phone] to get the results of your gonorrhea and chlamydia testing. please contact your most recent sexual partner to have him tested. You do have an ovarian cyst on the left that needs to be followed by gynecology. Please call [facility] physician (Dr. Womack) for reevaluation of your cyst and also for continued management of your . please return to the ER immediately if you have vaginal bleeding, worsening pain, fevers, or feel unwell. Please take Vitamins. Referrals: KRISTI WOMACK MD [ACTIVE STAFF] - Follow up in 3-5 days
[2017-09-02 04:39] LABS: APPEARANCE,URINE SLIGHTLY-CLOUDY; BILIRUBIN,URINE NEGATIVE (NEGATIVE); COLOR,URINE YELLOW; GLUCOSE, URINE NEGATIVE (NEGATIVE); KETONES,URINE TRACE mg/dL (NEGATIVE); LEUKOCYTE ESTERASE,URINE MODERATE (NEGATIVE); NITRITE,URINE NEGATIVE (NEGATIVE); PROTEIN,URINE 30 mg/dL (NEGATIVE); URINE SPECIFIC GRAVITY 1.032
[2017-09-02 06:03] LABS: BACTERIA (WET MOUNT) 4+ BACTERIA SEEN; EPITHELIALS (WET MOUNT) 3+ EPITHELIALS SEEN; RBCS (WET MOUNT) NO RBCS SEEN; T.VAGINALIS (WET MOUNT) NO TRICHOMONAS SEEN; WBCS (WET MOUNT) FEW WBCS SEEN; YEAST (WET MOUNT) BUDDING YEAST SEEN
[2017-09-02] MEDS ORDERED: AZITHROMYCIN 250 MG TABLET PO ONE (06:43)
[2017-09-02] MEDS ORDERED: LIDOCAINE 1% INJ-PF (10 MG/ML) 30 ML SDV INFIL ONE (06:43)
[2017-09-02] MEDS ORDERED: CEFTRIAXONE INJ 250 MG VIAL IM ONE (06:43)
--- NOTE | 2017-09-02 06:59 | RADIOLOGY REPORT (SQ) ---
EXAM DESCRIPTION: US TRANSVAGINAL COMPLETED DATE/TME: 09/02/2017 04:36 CLINICAL HISTORY: 22 years, Female, abdominal pain in LMP 07/16/2017 beta-hCG of 51,243 COMPARISON: None. TECHNIQUE: First trimester obstetrical ultrasound obtained with transvaginal imaging. Limited color spectral Doppler imaging of the ovaries are not performed. FINDINGS: The uterus measures 10.1 x 5.6 x 7.3 cm. Within the endometrial canal there is a single gestational sac. pole identified measuring 0.65 cm compatible with an estimated gestational age of 6 weeks, 3 days. heart rate of 122 beats for minute. Yolk sac is normal appearance. Small amount of free pelvic fluid. Right ovary is not identified. Left ovary measures 3.0 x 2.5 x 3.5 cm. There is a septated left ovarian cyst measuring 2.0 x 1.8 x 2.6 cm likely corpus luteal cyst. No follow-up imaging required. IMPRESSION: 1. Single live intrauterine with estimated gestational age of 6 weeks, 3 days. heart rate of 122 bpm. 2011 [employer]- All Rights Reserved
[2017-09-02 07:10] VITALS: BP 118/70
[2017-09-02 07:28] LABS: CHLAM PCR NOT DETECTED (NOT DETECT); GON PCR NOT DETECTED (NOT DETECT)
== END 2017-09-02 07:24 | disposition home or self-care (01) ==
LOC: ER 03:37
DX: O26.91 Pregnancy related conditions, unspecified, first trimester (principal); R10.31 Right lower quadrant pain; Z3A.01 Less than 8 weeks gestation of pregnancy
CPT/HCPCS: 99284; 96372; 36415; 87210; 84702; 81025; 81001; 87491; 87591; 76817; 93976; J3490; J0696

== ENCOUNTER 2018-03-03 06:09 | Emergency (ER) | payer SELFPAY ==
[2018-03-03] MEDS ORDERED: DEXAMETHASONE SOD PHOS INJ 10 MG/1 ML VIAL IM ONE (07:30)
--- NOTE | 2018-03-03 07:32 | ER Document Report ---
HPI - HPI Time Seen by Provider: 03/03/18 07:24 Pain Level: 5 Notes: Patient is a 22-year-old female with no significant past medical history who presents to the ED complaining of sore throat times 4-5 days. Symptoms initially began with URI symptoms and a fever which have since improved. Patient states that she has had strep in the past and this feels similar. Patient states that her right side is worse on her left side. She is still able to eat and drink, but does have discomfort with swallowing. She is urinating normally. Patient does admit to smoking but denies IV drug use. Denies any history of pre-tonsillar/pharyngeal abscess. No other concerns or complaints at this time. Denies any headache, fever, neck pain, chest pain, palpitations, syncope, cough, shortness of breath, wheeze, dyspnea, abdominal pain, nausea/vomiting/diarrhea, urinary retention, dysuria, hematuria, or rash. - ROS Systems Reviewed and Negative: Yes All other systems reviewed and negative - REPRODUCTIVE LMP: control Past Medical History - Social History Smoking Status: Current Every Day Smoker Family History: Reviewed & Not Pertinent Renal/ Medical History: Denies: Hx Peritoneal Dialysis Past Surgical History: Reports: Hx Gynecologic Surgery - 2015 Vertical Provider Document - CONSTITUTIONAL Agree With Documented VS: Yes Notes: PHYSICAL EXAMINATION: GENERAL: Well-appearing, well-nourished and in no acute distress. A&Ox4. Answers questions appropriately. Moves comfortably w/o notable distress HEAD: Atraumatic, normocephalic. EYES: Pupils equal round and reactive to light, extraocular movements intact, sclera anicteric, conjunctiva are normal. ENT: EAC clear b/l. TM's intact b/l without erythema, fluid, or perforation. Nares patent and with clear discharge. oropharynx with erythema without exudates. 2+ tonsilar hypertrophy with erythema no exudate (R>L). No palatine shift. Uvula midline. No tongue protrusion. No drooling, hoarseness, or airway compromise. Moist mucous membranes. No sinus tenderness. NECK: Normal range of motion, supple with + small ant. cerv. chain lymphadenopathy. No rigidity/meningismus. LUNGS: Breath sounds clear to auscultation bilaterally and equal. No wheezes rales or rhonchi. No retractions HEART: Regular rate and rhythm without murmurs, rubs, gallops. ABDOMEN: Soft, nontender, nondistended abdomen. No guarding, no rebound. No masses appreciated. Normal bowel sounds present. No CVA tenderness bilaterally. No hepatosplenomegaly. NEUROLOGICAL: Normal speech, normal gait. Normal sensory, motor exams PSYCH: Normal mood, normal affect. SKIN: Warm, Dry, normal turgor, no rashes or lesions noted. - INFECTION CONTROL TRAVEL OUTSIDE OF THE [place] IN LAST 30 DAYS: No Course - Re-evaluation Re-evalutation: 03/03/18 07:54 Patient is an afebrile, well-hydrated 20-year-old female who presents to the ED with acute strep pharyngitis. Vitals are acceptable. PE is otherwise unremarkable. Rapid strep was positive. Decadron given IM. No further labs or imaging warranted at this time. Patient is nontoxic-appearing and is able to tolerate p.o. without difficulty. Low suspicion for any meningitis, sepsis, peritonsillar/pharyngeal abscess, respiratory compromise, Josue's, or other emergent systemic condition at this time. Patient is aware this condition can change from initial presentation and she needs to monitor symptoms closely. Rx for PCN. Conservative measures otherwise for symptoms. Recheck with your PCM in 3-5 days. Return to the ED with any worsening/concerning symptoms otherwise as reviewed in discharge. Patient is in agreement. - Vital Signs Vital signs: Temp Pulse Resp BP Pulse Ox 98.7 F 81 16 126/80 H 97 03/03/18 06:09 03/03/18 06:09 03/03/18 06:09 03/03/18 06:09 03/03/18 06:09 Discharge - Discharge Clinical Impression: Acute streptococcal pharyngitis Condition: Stable Disposition: HOME, SELF-CARE Instructions: Strep Throat ([facility]), Penicillin V K ([facility]) Additional Instructions: Maintain adequate fluid intake Take meds as directed Salt water gargles, throat sprays, mouthwash rinse, peroxide gargles tylenol/ibuprofen as needed New toothbrush tomorrow evening over the counter cold medication as needed for symptoms F/u: with your PCM in 3-5 days for a recheck Consider consult with ENT for ongoing/worsening symptoms Return to the ED with any fever, worsening pain, chest pain, neck pain/stiffness , shortness of breath, cough, drooling, trouble swallowing/breathing, abdominal pain, n/v/d, rash, or worsening/concerning symptoms otherwise. Prescriptions: Penicillin V Potassium [Penicillin Vk 250 mg Tablet] 500 mg PO BID #40 tablet Forms: Elevated Blood Pressure, Smoking Cessation Education Referrals: CURT DUNNE DO [ASSOCIATE] - Follow up as needed
[2018-03-03 08:01] VITALS: BP 122/81
== END 2018-03-03 08:02 | disposition home or self-care (01) ==
LOC: ER 06:09
DX: J02.0 Streptococcal pharyngitis (principal); F17.200 Nicotine dependence, unspecified, uncomplicated
CPT/HCPCS: 99283; 87880; J1100

== ENCOUNTER 2019-03-06 19:34 | Emergency (ER) | payer OTHER ==
[2019-03-06 21:41] LABS: ABSOLUTE BASOPHILS # (AUTO) 0.1 10^3/uL (0.0-0.2); ABSOLUTE EOSINOPHILS # (AUTO) 0.1 10^3/uL (0.0-0.6); ABSOLUTE MONOCYTES (AUTO) 0.5 10^3/uL (0.1-1.4); ABSOLUTE NEUT (AUTO) 3.9 10^3/uL (1.7-8.2); BASOPHILS % (AUTO) 0.7 % (0-2); EOSINOPHILS % (AUTO) 1.1 % (0-6); HEMATOCRIT 38.5 % (36.0-47.0); HEMOGLOBIN 12.7 g/dL (12.0-15.5); LYMPHOCYTES % (AUTO) 39.8 % (13-45); MEAN CORPUSCULAR HEMOGLOBIN 28.3 pg (27.0-33.4); MEAN CORPUSCULAR HGB CONC 32.9 g/dL (32.0-36.0); MEAN CORPUSCULAR VOLUME 86 fl (80-97); MONOCYTES % (AUTO) 7.1 % (3-13); PLATELET COUNT 320 10^3/uL (150-450); RED BLOOD COUNT 4.48 10^6/uL (3.72-5.28); RED CELL DISTRIBUTION WIDTH 15.2 % (11.5-14.0); SEGMENTED NEUTROPHILS % (AUTO) 51.3 % (42-78); TOTAL CELLS COUNTED % (AUTO) 100 %; WHITE BLOOD COUNT 7.6 10^3/uL (4.0-10.5)
[2019-03-06 21:46] LABS: APPEARANCE,URINE CLEAR; BILIRUBIN,URINE NEGATIVE (NEGATIVE); COLOR,URINE YELLOW; GLUCOSE, URINE NEGATIVE (NEGATIVE); KETONES,URINE TRACE mg/dL (NEGATIVE); LEUKOCYTE ESTERASE,URINE TRACE (NEGATIVE); NITRITE,URINE NEGATIVE (NEGATIVE); PROTEIN,URINE NEGATIVE (NEGATIVE); URINE SPECIFIC GRAVITY 1.013; UROBILINOGEN,URINE NEGATIVE mg/dL (<2.0)
[2019-03-06 21:58] LABS: ALBUMIN 4.7 g/dL (3.5-5.0); ALKALINE PHOSPHATASE 59 U/L (38-126); ANION GAP 10 (5-19); ASPARTATE AMINO TRANSFERASE 28 U/L (14-36); BILIRUBIN,DIRECT 0.1 mg/dL (0.0-0.4); BILIRUBIN,TOTAL 0.4 mg/dL (0.2-1.3); BLOOD UREA NITROGEN 12 mg/dL (7-20); CALCIUM 9.9 mg/dL (8.4-10.2); CARBON DIOXIDE 31 mmol/L (22-30); CHLORIDE 100 mmol/L (98-107); GLUCOSE 103 mg/dL (75-110); POTASSIUM 3.7 mmol/L (3.6-5.0)
[2019-03-07] MEDS ORDERED: CEPHALEXIN 500 MG CAPSULE PO ONE (00:18)
[2019-03-07] MEDS ORDERED: KETOROLAC TROMETHAMINE 60 MG/2 ML SDV IM ONE (00:18)
--- NOTE | 2019-03-07 01:09 | ER Document Report ---
ED GI/ - General Chief Complaint: Abdominal Pain Stated Complaint: ABDOMINAL PAIN Time Seen by Provider: 03/06/19 23:55 Notes: Ms. Mccullough is a 23 yo f w/ no significant past medical history presenting to the ED for L-sided abdominal pain. Patient states that she had similar pain approximately 1 year ago and at that point in time she was and was diagnosed with a pelvic cyst. This was back in September. She later had a . And believes that the cyst has since ruptured. She states the pain comes spontaneously in waves. Her LMP was approximately 2 to 3 weeks ago. Patient endorses monogamous sexual activity with her . No condom use. She denies any vaginal discharge or foul-smelling odors. No pain with intercourse. Patient does add that 3 times over the past week, she has had episodes of wetting the bed which is atypical for her. She also adds that she has feelings of incomplete voiding at the end of urination although when she attempts to complete voiding, nothing further comes out. She also endorses urinary frequency without dysuria. No vomiting, or diarrhea. She has had normal p.o. intake. Patient denies any fever or chills. Of note, the patient is a G3, P1 with 2 previous abortions. Her son is 2 years old and otherwise healthy. TRAVEL OUTSIDE OF THE [place] IN LAST 30 DAYS: No - Related Data Allergies/Adverse Reactions: mushroom Allergy (Verified 08/09/16 14:27) banana peppers Allergy (Uncoded 08/09/16 14:27) Past Medical History - Social History Smoking Status: Current Some Day Smoker Family History: Reviewed & Not Pertinent Patient has suicidal ideation: No Patient has homicidal ideation: No Renal/ Medical History: Denies: Hx Peritoneal Dialysis Past Surgical History: Reports: Hx Gynecologic Surgery - 2015 Review of Systems - Review of Systems Constitutional: See HPI EENT: No symptoms reported Cardiovascular: No symptoms reported Respiratory: No symptoms reported Gastrointestinal: See HPI Genitourinary: See HPI Female Genitourinary: See HPI Musculoskeletal: No symptoms reported Skin: No symptoms reported Hematologic/Lymphatic: No symptoms reported Neurological/Psychological: No symptoms reported Physical Exam - Vital signs Vitals: Temp Pulse Resp BP Pulse Ox 98.4 F 78 18 129/83 H 100 03/06/19 20:14 03/06/19 20:14 03/06/19 20:14 03/06/19 20:14 03/06/19 20:14 Interpretation: Normal - General General appearance: Appears well, Alert - HEENT Head: Normocephalic, Atraumatic Eyes: Normal Pupils: PERRL - Respiratory Respiratory status: No respiratory distress Chest status: Nontender Breath sounds: Normal Chest palpation: Normal - Cardiovascular Rhythm: Regular Heart sounds: Normal auscultation Murmur: No - Abdominal Inspection: Normal Distension: No distension Bowel sounds: Normal Tenderness: Tender - Left lower quadrant and suprapubic. No: Guarding, Rebound Organomegaly: No organomegaly - Back Back: Normal, Nontender - Extremities General upper extremity: Normal inspection, Nontender, Normal color, Normal ROM, Normal temperature General lower extremity: Normal inspection, Nontender, Normal color, Normal ROM, Normal temperature, Normal weight bearing. No: Isidra's sign - Neurological Neuro grossly intact: Yes Cognition: Normal Orientation: AAOx4 [place] Coma Scale Eye Opening: Spontaneous [place] Coma Scale Verbal: Oriented [place] Coma Scale Motor: Obeys Commands [place] Coma Scale Total: 15 Speech: Normal Motor strength normal: LUE, RUE, LLE, RLE Sensory: Normal - Psychological Associated symptoms: Normal affect, Normal mood - Skin Skin Temperature: Warm Skin Moisture: Dry Skin Color: Normal Course - Re-evaluation Re-evalutation: Patient is generally well-appearing and nontoxic. Initial vitals within normal limits. Abdomen is benign on clinical examination with concern for possible ovarian cyst versus cystitis. Differential also includes functional abdominal pain and constipation. Low suspicion for pelvic inflammatory disease or STI given the lack of vaginal discharge Labs were ordered from triage. CBC, CMP and all are unremarkable. UA does show evidence of 10 WBCs as well as a small amount of blood and positive for leukocyte Estrace with only 2 epithelial cells. Given the patient's constellation of symptoms with involuntary nighttime voiding episodes as well as incomplete voiding, will treat as cystitis versus UTI. Patient given first dose of Keflex here in ED. Patient also provided with Toradol for pain control and will obtain pelvic ultrasound. 03/07/19 02:10 Ultrasound is negative for any acute process. No evidence of cysts or torsion. Given return precautions. Recommended that she follow-up with her primary care doctor and/or OB as needed. Patient also recommended to take the full course of antibiotics as prescribed for likely cystitis. Patient instructed to use yogurt regularly to prevent diarrhea commonly associate with antibiotic use. - Vital Signs Vital signs: Temp Pulse Resp BP Pulse Ox 98.4 F 78 18 129/83 H 100 03/06/19 20:29 03/06/19 20:29 03/06/19 20:29 03/06/19 20:29 03/06/19 20:29 - Laboratory Result Diagrams: 03/06/19 21:00 03/06/19 21:00 Laboratory results interpreted by me: 03/06/19 03/06/19 03/06/19 20:55 21:00 21:00 RDW 15.2 H Carbon Dioxide 31 H Urine Ketones TRACE H Urine Blood SMALL H Ur Leukocyte Esterase TRACE H Discharge - Discharge Clinical Impression: Pelvic pain, Cystitis Condition: Good Disposition: HOME, SELF-CARE Instructions: Abdominal Pain ([facility]) Additional Instructions: I would recommend that you continue using the antibiotics for the next 5 days. Given that antibiotics kill both the bad bacteria as well as good bacteria in your GI system I would recommend that you eat yogurt with probiotics or live bacterial cultures to help prevent diarrhea commonly associated with antibiotic use. Make sure you drink plenty of fluids and stay well-hydrated. Follow-up with your primary care doctor as needed. If you develop worsening abdominal pain, fever, or unable to keep down food or drink, or any other concerning symptoms, please return to the emergency department for further evaluation. Prescriptions: Cephalexin Monohydrate [Keflex 500 mg Capsule] 500 mg PO TID 5 Days #15 capsule
--- NOTE | 2019-03-07 01:59 | RADIOLOGY REPORT (SQ) ---
EXAM DESCRIPTION: US PELVIS COMPLETED DATE/TME: 03/07/2019 00:18 CLINICAL HISTORY: 23 years Female, L pelvic pain, hx of cyst Comparison: None. Technique: Transabdominal. LIMITATIONS: None. FINDINGS: 8-cm uterus, 0.7-cm endometrial stripe thickness, 3.3-cm right ovary, and 2.8-cm left ovary appear normal in size, shape, echotexture, and vascularity. No free fluid. IMPRESSION: Normal pelvic sonogram.
[2019-03-07 02:13] VITALS: BP 119/82
== END 2019-03-07 02:23 | disposition home or self-care (01) ==
LOC: ER 19:34
DX: N30.91 Cystitis, unspecified with hematuria (principal); R10.2 Pelvic and perineal pain; R10.814 Left lower quadrant abdominal tenderness; R32 Unspecified urinary incontinence; F17.200 Nicotine dependence, unspecified, uncomplicated; Z91.018 Allergy to other foods
CPT/HCPCS: 36415; 76856; 80053; 81001; 84703; 85025; 93976; 99284

== ENCOUNTER 2019-06-07 02:35 | Emergency (ER) | payer OTHER ==
[2019-06-07 03:36] LABS: ABSOLUTE EOSINOPHILS # (AUTO) 0.1 10^3/uL (0.0-0.6); ABSOLUTE MONOCYTES (AUTO) 0.7 10^3/uL (0.1-1.4); ABSOLUTE NEUT (AUTO) 5.4 10^3/uL (1.7-8.2); BASOPHILS % (AUTO) 0.5 % (0-2); EOSINOPHILS % (AUTO) 1.1 % (0-6); HEMATOCRIT 35.8 % (36.0-47.0); HEMOGLOBIN 12.1 g/dL (12.0-15.5); LYMPHOCYTES % (AUTO) 24.1 % (13-45); MEAN CORPUSCULAR HEMOGLOBIN 28.7 pg (27.0-33.4); MEAN CORPUSCULAR HGB CONC 33.9 g/dL (32.0-36.0); MEAN CORPUSCULAR VOLUME 85 fl (80-97); PLATELET COUNT 276 10^3/uL (150-450); RED BLOOD COUNT 4.22 10^6/uL (3.72-5.28); RED CELL DISTRIBUTION WIDTH 17.3 % (11.5-14.0); SEGMENTED NEUTROPHILS % (AUTO) 65.3 % (42-78); TOTAL CELLS COUNTED % (AUTO) 100 %; WHITE BLOOD COUNT 8.2 10^3/uL (4.0-10.5)
[2019-06-07 03:46] LABS: APPEARANCE,URINE SLIGHTLY-CLOUDY; BILIRUBIN,URINE NEGATIVE (NEGATIVE); COLOR,URINE YELLOW; GLUCOSE, URINE NEGATIVE (NEGATIVE); KETONES,URINE TRACE mg/dL (NEGATIVE); LEUKOCYTE ESTERASE,URINE MODERATE (NEGATIVE); NITRITE,URINE NEGATIVE (NEGATIVE); PROTEIN,URINE 30 mg/dL (NEGATIVE); URINE SPECIFIC GRAVITY 1.028; UROBILINOGEN,URINE NEGATIVE mg/dL (<2.0)
[2019-06-07 03:52] LABS: ALBUMIN 4.3 g/dL (3.5-5.0); ALKALINE PHOSPHATASE 61 U/L (38-126); ANION GAP 7 (5-19); ASPARTATE AMINO TRANSFERASE 22 U/L (14-36); BILIRUBIN,TOTAL 0.2 mg/dL (0.2-1.3); BLOOD UREA NITROGEN 18 mg/dL (7-20); CARBON DIOXIDE 26 mmol/L (22-30); CHLORIDE 103 mmol/L (98-107); GLUCOSE 87 mg/dL (75-110); POTASSIUM 3.8 mmol/L (3.6-5.0); TOTAL PROTEIN 7.1 g/dL (6.3-8.2)
[2019-06-07] MEDS ORDERED: METOCLOPRAMIDE HCL 10 MG TABLET PO ONE (04:35)
[2019-06-07] MEDS ORDERED: ACETAMINOPHEN 325 MG TABLET PO ONE (04:36)
--- NOTE | 2019-06-07 04:36 | ER Document Report ---
ED GI/ - General Chief Complaint: Abdominal Pain Stated Complaint: SHARP ABDOMINAL PAIN,NAUSEA,6WKS Time Seen by Provider: 06/07/19 04:26 Notes: Patient is a 23-year-old female that comes to the emergency department for chief complaint of intermittent lower abdominal pain worse on the left side for several days but since last night pain is been significantly worse. She is at almost 7 weeks gestation by last menstrual period, has not had an ultrasound confirming the from a positive home test. She does have [facility] follow-up established but has not been there yet. She denies injury, she denies vaginal bleeding or discharge, denies dysuria. She denies fever. She reports intermittent nausea since last night but denies vomiting. She is on vitamins, has had a , no past medical history reported otherwise. TRAVEL OUTSIDE OF THE [place] IN LAST 30 DAYS: No - Related Data Allergies/Adverse Reactions: mushroom Allergy (Verified 08/09/16 14:27) banana peppers Allergy (Uncoded 08/09/16 14:27) Home Medications: Vits Past Medical History - General Information source: Patient - Social History Smoking Status: Never Smoker Frequency of alcohol use: Social Drug Abuse: None Lives with: Family Family History: Reviewed & Not Pertinent Patient has suicidal ideation: No Patient has homicidal ideation: No Renal/ Medical History: Denies: Hx Peritoneal Dialysis Past Surgical History: Reports: Hx Section, Hx Gynecologic Surgery - 2015 - Immunizations Immunizations up to date: Yes Hx Diphtheria, Pertussis, Tetanus Vaccination: Yes Review of Systems - Review of Systems Constitutional: No symptoms reported EENT: No symptoms reported Cardiovascular: No symptoms reported Respiratory: No symptoms reported Gastrointestinal: See HPI Genitourinary: See HPI Female Genitourinary: See HPI Musculoskeletal: No symptoms reported Skin: No symptoms reported Hematologic/Lymphatic: No symptoms reported Neurological/Psychological: No symptoms reported Physical Exam - Vital signs Vitals: Temp Pulse Resp BP Pulse Ox 97.5 F 73 20 116/75 100 06/07/19 02:43 06/07/19 02:43 06/07/19 02:43 06/07/19 02:43 06/07/19 02:43 - Notes Notes: GENERAL: Alert, interacts well. No acute distress. HEAD: Normocephalic, atraumatic. EYES: Pupils equal, round, and reactive to light. Extraocular movements intact. ENT: Oral mucosa moist, tongue midline. Oropharynx unremarkable. Airway patent. LUNGS: Clear to auscultation bilaterally, no wheezes, rales, or rhonchi. No re spiratory distress. HEART: Regular rate and rhythm. No murmur ABDOMEN: Tender in the left lower abdomen/pelvic area but there is no guarding. No rigidity, no distention, no rebound tenderness. GENITOURINARY: Scant minimal discharge, closed cervix, no current bleeding, no lesions. Exam performed with Guerda WILKES at bedside. EXTREMITIES: Moves all 4 extremities spontaneously. No edema, normal radial and dorsalis pedis pulses bilaterally. No cyanosis. BACK: no cervical, thoracic, lumbar midline tenderness. No saddle anesthesia, normal distal neurovascular exam. Moves all extremities in full range of motion. NEUROLOGICAL: Alert and oriented x3. Normal speech. Cranial nerves II through XII grossly intact. PSYCH: Normal affect, normal mood. SKIN: Warm, dry, normal turgor. No rashes or lesions noted. Course - Re-evaluation Re-evalutation: Patient does have some tenderness in the left pelvic area on exam, remaining abdomen is soft and benign. She is well-appearing and comfortable appearing. Vital signs unremarkable. CBC with borderline anemia but nonspecific. Chemistry unremarkable. Urinalysis appears to show infection, hCG is very elevated. Pelvic exam with no concerning findings, but not unremarkable. Gonorrhea and Chlamydia were negative. I recommended treatment of the UTI, patient states she always has a "bad looking urine", she states she does not have any UTI symptoms and she does not want to be treated. She declined this despite recommendations for this in . Culture was placed. Ultrasound confirms intrauterine which is living with a heartbeat of 124, there is a tiny cyst on left ovary, there are 2 very small subchorionic hemorrhages. I discussed RhoGam/blood typing, patient states her blood type is Rh+, this was found to be true with multiple tests of this in the past at this facility. RhoGam was not indicated. Patient requesting work release, she was placed on pelvic rest recommendations, provided with nausea medication on request, discussed close [facility] follow-up which is already scheduled, discussed return precautions. Patient states understanding and agreement. Stable and well-appearing at time of discharge. - Vital Signs Vital signs: Temp Pulse Resp BP Pulse Ox 98.3 F 64 16 128/63 H 100 06/07/19 06:42 06/07/19 06:42 06/07/19 06:42 06/07/19 06:42 06/07/19 06:42 - Laboratory Result Diagrams: 06/07/19 03:25 06/07/19 03:25 Laboratory results interpreted by me: 06/07/19 06/07/19 06/07/19 03:25 03:25 03:25 Hct 35.8 L RDW 17.3 H Sodium 136.2 L Beta HCG, Quant 19387.00 H Urine Protein 30 H Urine Ketones TRACE H Ur Leukocyte Esterase MODERATE H Discharge - Discharge Clinical Impression: Pelvic pain affecting Qualifiers: Trimester: first trimester Qualified Code(s): O26.891 - Other specified related conditions, first trimester Condition: Stable Disposition: HOME, SELF-CARE Additional Instructions: The ultrasound shows a living in the uterus at 6 weeks and 6 days. Your estimated date of delivery is around 01/28/2020. There are 2 small subchorionic hemorrhages as we discussed, this is most likely the cause of your pain. Because of this I recommend pelvic rest (avoid any significant lifting, jumping, running, or other significant physical activity including sexual intercourse until symptoms resolve/cleared by [facility]). Take nausea medication as prescribed if needed. Continue vitamins. Take Tylenol if needed for pain. Return if you worsen including severe worsening pain, heavy bleeding, dizziness, passing out, fever, or any other concerning symptoms. Prescriptions: Metoclopramide HCl [Reglan] 5 mg PO ASDIR PRN #30 tablet PRN Reason: Forms: Return to Work
[2019-06-07 05:51] LABS: RBCS (WET MOUNT) NO RBCS SEEN; T.VAGINALIS (WET MOUNT) NO TRICHOMONAS SEEN; WBCS (WET MOUNT) FEW WBCS SEEN; YEAST (WET MOUNT) NO YEAST SEEN
--- NOTE | 2019-06-07 06:25 | RADIOLOGY REPORT (SQ) ---
EXAM DESCRIPTION: US TRANSVAGINAL COMPLETED DATE/TME: 06/07/2019 00:00 CLINICAL HISTORY: 23 years Female, LLQ PAIN COMPARISON: None. TECHNIQUE: Complete first trimester obstetrical ultrasound obtained with transvaginal and transabdominal imaging. FINDINGS: Uterus: The uterus measures 9.4 x 5.5 x 6.4 cm. No myometrial abnormalities identified. Cervical length of 3.2 cm. The cervix is closed. Gestational sac: Gestational sac identified with a mean sac diameter of 2.17 cm. 2 small hypoechoic regions adjacent to the gestational sac, largest measuring 1.1 cm. pole: pole identified with a crown-rump length of 0.62 cm. heart motion: heart rate of 124 bpm. Yolk sac: Normal-appearing yolk sac. Placenta: Not well evaluated due to early gestational age. Right ovary: Not visualized due to overlying structures. Left ovary: The left ovary measures 3.5 x 2.5 x 2.7 cm. Left ovarian corpus luteal cyst. Adnexa: No large adnexal masses. Free fluid: Trace free pelvic fluid. Duplex imaging: Color and spectral Doppler imaging of the left ovary demonstrates blood flow. IMPRESSION: 1. Single live intrauterine with estimated gestational age of 6 weeks, 6 days. heart rate of 124 beats per minute. 2. 2 small subchorionic hemorrhages, the largest measuring 1.1 cm. Continued obstetrical follow-up recommended.
[2019-06-07 06:42] VITALS: BP 128/63
[2019-06-07 07:16] LABS: CHLAM PCR NOT DETECTED (NOT DETECT)
== END 2019-06-07 06:42 | disposition home or self-care (01) ==
LOC: ER 02:35
DX: O26.891 Other specified pregnancy related conditions, first trimester (principal); R10.30 Lower abdominal pain, unspecified; Z3A.01 Less than 8 weeks gestation of pregnancy
CPT/HCPCS: 36415; 76817; 80053; 81001; 83690; 84702; 85025; 87086; 87210; 87491; 87591; 99284